=== PATIENT | female | born 1950 | race Caucasian/White ===

== ENCOUNTER 2019-07-11 14:19 | Observation (INO) | payer MEDICARE, OTHER ==
[2019-07-11] MEDS ORDERED: SODIUM CHLORIDE 0.9% 500 ML 500 ML IV STA (15:36)
[2019-07-11] MEDS ORDERED: hydrALAZINE HCL 20 MG/ML 1 ML VIAL IVP STA (15:36)
--- NOTE | 2019-07-11 15:40 | ED ---
General Adult HPI - General Chief complaint: Neuro Symptoms/Deficit Stated complaint: Weakness Time Seen by Provider: 07/11/19 15:00 Source: patient, family, RN notes reviewed Mode of arrival: wheelchair Limitations: no limitations - History of Present Illness Initial comments: Patient is a pleasant 69-year-old female presenting to the emergency Department with generalized weakness. Symptoms started a couple months ago and have worsened this past couple of weeks. Family has concern there may be some left- sided weakness. Patient is having difficulty even using a walker. Patient is not leaving her place of residence. Patient is not eating or drinking much at all. Patient does admit that her mouth feels dry. Patient denies confusion. Patient has stopped taking her Xarelto. Patient states she does not take her pressure medication because the one that she did try did not agree with her. Patient has refused to try other medications for the blood pressure. - Related Data Home Medications Medication Instructions Recorded Confirmed ALPRAZolam [Xanax XR] 2 mg PO DAILY@1700 07/11/19 07/11/19 Levothyroxine Sodium [Synthroid] 25 mcg PO DAILY 07/11/19 07/11/19 Allergies Allergy/AdvReac Type Severity Reaction Status Date / Time Sulfa (Sulfonamide Allergy Rash/Hives Verified 07/11/19 15:59 Antibiotics) aspirin AdvReac Abdominal Verified 07/11/19 15:59 Pain ibuprofen AdvReac Abdominal Verified 07/11/19 15:59 Pain Penicillins AdvReac Confusion Verified 07/11/19 15:59 Review of Systems ROS Statement: Those systems with pertinent positive or pertinent negative responses have been documented in the HPI. ROS Other: All systems not noted in ROS Statement are negative. Constitutional: Denies: fever Eyes: Denies: eye pain ENT: Denies: ear pain Respiratory: Denies: cough Cardiovascular: Reports: palpitations (Chronic). Denies: chest pain Endocrine: Reports: fatigue Gastrointestinal: Denies: abdominal pain, nausea, vomiting Genitourinary: Denies: dysuria Musculoskeletal: Reports: back pain (Chronic) Skin: Denies: rash Neurological: Reports: as per HPI Past Medical History Past Medical History: Atrial Fibrillation, Thyroid Disorder Additional Past Medical History / Comment(s): noncompliant with afib History of Any Multi-Drug Resistant Organisms: None Reported Past Surgical History: Appendectomy, Hysterectomy, Tonsillectomy Past Psychological History: Anxiety Smoking Status: Current every day smoker Past Alcohol Use History: Daily Past Drug Use History: None Reported General Exam Limitations: no limitations General appearance: alert, in no apparent distress Head exam: Present: atraumatic Eye exam: Present: normal appearance, PERRL, EOMI. Absent: nystagmus ENT exam: Present: normal oropharynx Neck exam: Present: normal inspection Respiratory exam: Present: normal lung sounds bilaterally Cardiovascular Exam: Present: regular rate, normal rhythm Expanded Peripheral pulses: 2+: Radial (R), Radial (L), Dorsalis Pedis (R), Dorsalis Pedis (L) GI/Abdominal exam: Present: soft. Absent: tenderness Extremities exam: Present: normal inspection, other (Long uncut Nails with tobacco staining). Absent: pedal edema, calf tenderness Neurological exam: Present: alert, CN II-XII intact. Absent: motor sensory deficit Expanded Neurological exam: Present: protecting the airway Speech: Present: fluid speech Cranial nerves: EOM's Intact: Normal Motor strength exam: RUE: 5, LUE: 5, RLE: 5, LLE: 5 Eye Response: (4) open spontaneously Motor Response: (6) obeys commands Verbal Response: (5) oriented Psychiatric exam: Present: normal affect, normal mood Skin exam: Present: normal color Course Vital Signs 07/11/19 07/11/19 07/11/19 14:44 15:10 15:20 Temperature 97.6 F Pulse Rate 85 78 73 Respiratory 18 12 15 Rate Blood Pressure 152/100 185/111 178/107 O2 Sat by Pulse 97 99 98 Oximetry 07/11/19 07/11/19 15:40 16:51 Temperature Pulse Rate 76 81 Respiratory 20 18 Rate Blood Pressure 188/115 190/70 O2 Sat by Pulse 99 100 Oximetry EKG Findings - EKG Comments: EKG Findings:: Normal sinus rhythm 81. WI 156. QRS 94. QT 416. QTc 43. Normal axis. Inferior Q waves. No acute ST change. Medical Decision Making - Medical Decision Making Patient reevaluated. Patient and family updated. Case discussed in detail with Dr. Tavaers, who will admit covering for Dr. Arreaga. - Lab Data Result diagrams: 07/11/19 15:13 07/11/19 15:13 Lab Results 07/11/19 07/11/1907/11/19 Range/Units 15:13 15:13 15:13 WBC 5.9 (3.8-10.6) k/uL RBC 5.23 (3.80-5.40) m/uL Hgb 15.9 (11.4-16.0) gm/dL Hct 46.2 H (34.0-46.0) % MCV 88.4 (80.0-100.0) fL MCH 30.4 (25.0-35.0) pg MCHC 34.4 (31.0-37.0) g/dL RDW 13.3 (11.5-15.5) % Plt Count 180 (150-450) k/uL Neutrophils % 68 % Lymphocytes % 21 % Monocytes % 7 % Eosinophils % 1 % Basophils % 1 % Neutrophils # 4.0 (1.3-7.7) k/uL Lymphocytes # 1.3 (1.0-4.8) k/uL Monocytes # 0.4 (0-1.0) k/uL Eosinophils # 0.1 (0-0.7) k/uL Basophils # 0.1 (0-0.2) k/uL PT 10.8 (9.0-12.0) sec INR 1.0 (<1.2) APTT 26.7 (22.0-30.0) sec Sodium 134 L (137-145) mmol/L Potassium 3.6 (3.5-5.1) mmol/L Chloride 100 (98-107) mmol/L Carbon Dioxide 18 L (22-30) mmol/L Anion Gap 16 mmol/L BUN 13 (7-17) mg/dL Creatinine 0.69 (0.52-1.04) mg/dL Est GFR (CKD-EPI)AfAm >90 (>60 ml/min/1.73 sqM) Est GFR (CKD-EPI)NonAf 89 (>60 ml/min/1.73 sqM) Glucose 79 (74-99) mg/dL Plasma Lactic Acid Mark (0.7-2.0) mmol/L Calcium 9.2 (8.4-10.2) mg/dL Total Bilirubin 0.8 (0.2-1.3) mg/dL AST 26 (14-36) U/L ALT 14 (9-52) U/L Alkaline Phosphatase 70 (38-126) U/L Troponin I (0.000-0.034) ng/mL Total Protein 8.1 (6.3-8.2) g/dL Albumin 4.3 (3.5-5.0) g/dL Urine Color Urine Appearance (Clear) Urine pH (5.0-8.0) Ur Specific Toney (1.001-1.035) Urine Protein (Negative) Urine Glucose (UA) (Negative) Urine Ketones (Negative) Urine Blood (Negative) Urine Nitrite (Negative) Urine Bilirubin (Negative) Urine Urobilinogen (<2.0) mg/dL Ur Leukocyte Esterase (Negative) Serum Alcohol 14 mg/dL 07/11/19 07/11/19 07/11/19 Range/Units 15:13 15:49 16:24 WBC (3.8-10.6) k/uL RBC (3.80-5.40) m/uL Hgb (11.4-16.0) gm/dL Hct (34.0-46.0) % MCV (80.0-100.0) fL MCH (25.0-35.0) pg MCHC (31.0-37.0) g/dL RDW (11.5-15.5) % Plt Count (150-450) k/uL Neutrophils % % Lymphocytes % % Monocytes % % Eosinophils % % Basophils % % Neutrophils # (1.3-7.7) k/uL Lymphocytes # (1.0-4.8) k/uL Monocytes # (0-1.0) k/uL Eosinophils # (0-0.7) k/uL Basophils # (0-0.2) k/uL PT (9.0-12.0) sec INR (<1.2) APTT (22.0-30.0) sec Sodium (137-145) mmol/L Potassium (3.5-5.1) mmol/L Chloride (98-107) mmol/L Carbon Dioxide (22-30) mmol/L Anion Gap mmol/L BUN (7-17) mg/dL Creatinine (0.52-1.04) mg/dL Est GFR (CKD-EPI)AfAm (>60 ml/min/1.73 sqM) Est GFR (CKD-EPI)NonAf (>60 ml/min/1.73 sqM) Glucose (74-99) mg/dL Plasma Lactic Acid Mark 2.0 (0.7-2.0) mmol/L Calcium (8.4-10.2) mg/dL Total Bilirubin (0.2-1.3) mg/dL AST (14-36) U/L ALT (9-52) U/L Alkaline Phosphatase (38-126) U/L Troponin I <0.012 (0.000-0.034) ng/mL Total Protein (6.3-8.2) g/dL Albumin (3.5-5.0) g/dL Urine Color Light Yellow Urine Appearance Clear (Clear) Urine pH 6.0 (5.0-8.0) Ur Specific Toney 1.003 (1.001-1.035) Urine Protein Negative (Negative) Urine Glucose (UA) Negative (Negative) Urine Ketones Negative (Negative) Urine Blood Negative (Negative) Urine Nitrite Negative (Negative) Urine Bilirubin Negative (Negative) Urine Urobilinogen <2.0 (<2.0) mg/dL Ur Leukocyte Esterase Negative (Negative) Serum Alcohol mg/dL - Radiology Data Radiology results: report reviewed (Computed tomography scan of the brain shows no acute process. Probable arachnoid cyst.), image reviewed (Chest x-ray does not reveal acute process. Cardiomegaly.) Disposition Clinical Impression: Weakness, Hypertensive urgency Disposition: ADMITTED IP TO THIS HOSP Is patient prescribed a controlled substance at d/c from ED?: No Referrals: Jackie Arreaga MD [Primary Care Provider] - 1-2 days Decision Time: 17:27
[2019-07-11 15:54] LABS: Basophils # (A) 0.1 k/uL (0-0.2); Basophils % (A) 1 %; Eosinophils # (A) 0.1 k/uL (0-0.7); Eosinophils % (A) 1 %; HCT 46.2 % (34.0-46.0); HGB 15.9 gm/dL (11.4-16.0); Lymphocytes # (A) 1.3 k/uL (1.0-4.8); Lymphocytes % (A) 21 %; MCH 30.4 pg (25.0-35.0); MCHC 34.4 g/dL (31.0-37.0); MCV 88.4 fL (80.0-100.0); Mean Platelet Volume 7.1; Monocytes # (A) 0.4 k/uL (0-1.0); Monocytes % (A) 7 %; Neutrophils % (A) 68 %; Platelet Count 180 k/uL (150-450); RBC 5.23 m/uL (3.80-5.40); RDW 13.3 % (11.5-15.5); WBC 5.9 k/uL (3.8-10.6)
[2019-07-11 16:07] LABS: ALT 14 U/L (9-52); AST 26 U/L (14-36); African American GFR (CKD) >90 (>60 ml/min/1.73 sqM); Albumin 4.3 g/dL (3.5-5.0); Alcohol 14 mg/dL; Alkaline Phosphatase 70 U/L (38-126); Anion Gap 16 mmol/L; Blood Urea Nitrogen 13 mg/dL (7-17); Calcium 9.2 mg/dL (8.4-10.2); Carbon Dioxide 18 mmol/L (22-30); Chloride 100 mmol/L (98-107); Glucose 79 mg/dL (74-99); Potassium 3.6 mmol/L (3.5-5.1); Sodium 134 mmol/L (137-145); Total Bilirubin 0.8 mg/dL (0.2-1.3); Total Protein 8.1 g/dL (6.3-8.2)
--- NOTE | 2019-07-11 16:13 | XR ---
EXAMINATION TYPE: XR chest 2V DATE OF EXAM: 07/11/2019 COMPARISON: NONE HISTORY: Weakness and atrial fibrillation TECHNIQUE: Frontal and lateral views of the chest are obtained. FINDINGS: There is no focal air space opacity, pleural effusion, or pneumothorax seen. The cardiac silhouette size is enlarged. The osseous structures are intact. Mild multilevel degenerative change s of the spine. There is diffuse osseous demineralization seen. IMPRESSION: Enlarged cardiac mediastinal silhouette however no priors are available to determine sta bility of size. No acute pulmonary process.
--- NOTE | 2019-07-11 16:18 | CT ---
EXAMINATION TYPE: CT brain wo con DATE OF EXAM: 07/11/2019 COMPARISON: None HISTORY: altered mental status CT DLP: 1141.4 mGycm Automated exposure control for dose reduction was used. FINDINGS: There is no acute cranial hemorrhage. No midline shift. No hydrocephalus. Scattered areas of low atte nuation in periventricular and subcortical white matter may be on the basis of chronic microvascular ischemic changes. Focal area is seen overlying the right frontoparietal lobe. No hydrocephalus. CSF a ttenuation area is seen anterior to the left temporal lobe within the middle cranial fossa measuring 3.7 x 3.0 cm in AP by transverse dimension. Findings may be on the basis of arachnoid cyst. Visualize d paranasal sinuses and mastoid air cells are clear. Skull base is intact. IMPRESSION: NO ACUTE INTRACRANIAL HEMORRHAGE OR MIDLINE SHIFT. SCATTERED LOW-ATTENUATION AREAS IN THE PERIVENTRICULAR AND SUBCORTICAL WHITE MATTER LIKELY ON THE BAS IS OF CHRONIC MICROVASCULAR ISCHEMIC CHANGES. LEFT MIDDLE CRANIAL FOSSA CSF INTENSITY COLLECTION FAVORED TO REPRESENT ARACHNOID CYST VERSUS ENLARGE D EXTRA-AXIAL SPACE. MRI OF THE BRAIN WITHOUT CONTRAST MAY BE PERFORMED FOR CONFIRMATION.
[2019-07-11 16:27] LABS: Partial Thromboplastin Time 26.7 sec (22.0-30.0); Prothrombin Time 10.8 sec (9.0-12.0)
[2019-07-11 16:32] LABS: Appearance,Urine Clear (Clear); Bilirubin,Urine Negative (Negative); Blood,Urine Negative (Negative); Color,Urine Light Yellow; Glucose,Urine (UA) Negative (Negative); Ketones,Urine Negative (Negative); Leukocyte Esterase,Urine Negative (Negative); Nitrite,Urine Negative (Negative); Protein,Urine Negative (Negative); Specific Gravity,Urine 1.003 (1.001-1.035); Urobilinogen,Urine <2.0 mg/dL (<2.0)
[2019-07-11] MEDS ORDERED: ASPIRIN 325 MG TAB PO STA (17:29)
[2019-07-11] MEDS ORDERED: ATENOLOL 12.5 MG TAB PO STA (17:35)
[2019-07-11] MEDS: SODIUM CHLORIDE 0.9% 1,000 ML IV SCH (18:03)
[2019-07-11] MEDS ORDERED: ALPRAZolam 1 MG TAB PO STA (20:22)
[2019-07-11 22:15] VITALS: BMI 28.0
[2019-07-12 06:42] VITALS: RESP 18
--- NOTE | 2019-07-12 07:25 | US ---
EXAMINATION TYPE: US carotid duplex BILAT DATE OF EXAM: 07/11/2019 COMPARISON: NONE CLINICAL HISTORY: Stenosis. Stenosis. Smoker. EXAM MEASUREMENTS: RIGHT: Peak Systolic Velocity (PSV) cm/sec ----- Right CCA: 59.2 ----- Right ICA: 67.7 ----- Right ECA: 79.9 ICA/CCA ratio: 1.1 RIGHT: End Diastole cm/sec ----- Right CCA: 17.5 ----- Right ICA: 23.7 ----- Right ECA: 10.1 LEFT: Peak Systolic Velocity (PSV) cm/sec ----- Left CCA: 54.6 ----- Left ICA: 77.6 ----- Left ECA: 74.7 ICA/CCA ratio: 1.4 LEFT: End Diastole cm/sec ----- Left CCA: 16.2 ----- Left ICA: 21.5 ----- Left ECA: 7.5 VERTEBRALS (direction of flow): Right Vertebral: Antegrade Left Vertebral: Antegrade Rhythm: Arrhythmia Bilateral wall thickening seen. Plaque seen bilateral carotid bifurcations, greater on left side. Lef t ICA appears tortuous. No elevated velocities obtained. *Hypoechoic area with vascularity seen near Left CCA measurin.6 x 0.5 x 0.4 cm. This appears to represent a small nonenlarged lymph node. IMPRESSION: 1. Mild degree of grayscale atheromatous plaquing with no sonographically evident hemodynamically si gnificant stenosis within either visualized carotid arterial system. 2. Incidentally noted cardiac arrhythmia. Correlate with EKG. 3. Incidentally noted probable nonenlarged lymph node adjacent to the left common carotid artery. Criteria for Assigning % of Stenosis / Diameter reduction (Estimation based on the indirect measurements of the internal carotid artery velocities (ICA PSV). 1. Normal (no stenosis)=ICA PSV < 125 cm/s: ratio < 2.0: ICA EDV<40 cm/s. 2. Less than 50% stenosis=ICA PSV < 125 cm/s: ratio < 2.0: ICA EDV<40 cm/s. 3. 50 to 69% stenosis=ICA PSV of 125 to 230 cm/s: ration 2.0 ? 4.0: ICA EDV 40-100 cm/s. 4. Greater than 70% stenosis to near occlusion= ICA PSV > 230 cm/s: ratio > 4.0: ICA EDV > 100 cm/s. 5. Near occlusion= ICA PSV velocities may be low or undetectable: variable ratio and ICA EDV. 6. Total occlusion=unable to detect flow.
[2019-07-12 07:30] LABS: Cholesterol 166 mg/dL (<200); HDL Cholesterol 27 mg/dL (40-60); LDL Cholesterol,Calculated 109 mg/dL (0-99); Triglycerides 148 mg/dL (<150)
[2019-07-12] MEDS ORDERED: ASPIRIN 325 MG TAB PO SCH (09:00)
[2019-07-12] MEDS ORDERED: ATENOLOL 25 MG TAB PO SCH (09:00)
[2019-07-12] MEDS: SODIUM CHLORIDE 0.9% 1,000 ML IV SCH ×2 (09:31→12:05)
[2019-07-12 11:47] VITALS: PULSE 67; TEMP 97.9
--- NOTE | 2019-07-12 11:49 | ECHOF ---
Referral Reason:Thrombus MEASUREMENTS -------- HEIGHT: 162.6 cm WEIGHT: 72.1 kg BP: IVSd: 1.2 cm (0.6 - 1.1) LVIDd: 3.9 cm (3.9 - 5.3) LVPWd: 1.6 cm (0.6 - 1.1) IVSs: 1.8 cm LVIDs: 2.7 cm LVPWs: 1.8 cm LA Diam: 3.3 cm (2.7 - 3.8) RVIDd: 2.5 cm (< 3.3) LAESV Index (A-L): 29.22 ml/m Ao Diam: 3.1 cm (2.0 - 3.7) LA Diam: 3.1 cm (2.7 - 3.8) AV Cusp: 1.9 cm (1.5 - 2.6) EPSS: 0.7 cm MV E John: 0.78 m/s MV DecT: 189 ms MV A John: 1.16 m/s MV E/A Ratio: 0.67 AR PHT: 582 ms RAP: 5.00 mmHg RVSP: 22.39 mmHg MV EF SLOPE: 69.44 mm/s (70 - 150) MV EXCURSION: 13.19 mm (> 18.000) FINDINGS -------- Sinus rhythm. This was a technically good study. The left ventricular size is normal. There is borderline concentric left ventricular hypertrophy. Overall left ventricular systolic function is normal with, an EF between 55 - 60 %. The diastolic filling pattern is normal for the age of the patient 17.99. The right ventricle is normal in size. The left atrial size is normal. Normal LA size by volume 22+/-6 ml/m2. The right atrial size is normal. There is mild aortic regurgitation. Mild mitral annular calcification present. Mild mitral regurgitation is present. Mild tricuspid regurgitation present. There is no evidence of pulmonary hypertension. The right v entricular systolic pressure, as measured by Doppler, is 22.39mmHg. Trace/mild (physiologic) pulmonic regurgitation. The aortic root size is normal. There is no pericardial effusion. CONCLUSIONS -------- 1. Sinus rhythm. 2. This was a technically good study. 3. The left ventricular size is normal. 4. There is borderline concentric left ventricular hypertrophy. 5. Overall left ventricular systolic function is normal with, an EF between 55 - 60 %. 6. The diastolic filling pattern is normal for the age of the patient 17.99 7. The right ventricle is normal in size. 8. The left atrial size is normal. 9. Normal LA size by volume 22+/-6 ml/m2. 10. The right atrial size is normal. 11. There is mild aortic regurgitation. 12. Mild mitral annular calcification present. 13. Mild mitral regurgitation is present. 14. Mild tricuspid regurgitation present. 15. There is no evidence of pulmonary hypertension. 16. The right ventricular systolic pressure, as measured by Doppler, is 22.39mmHg. 17. Trace/mild (physiologic) pulmonic regurgitation. 18. The aortic root size is normal. 19. There is no pericardial effusion. SLAB GRINDER: Marcela Putnam RDCS
--- NOTE | 2019-07-12 12:02 | P.HPIM ---
History of Present Illness 69.-year-old presents female came in with compensative symptoms of generalized weakness patient has multiple nonspecific symptoms. Patient has a difficulty in using walker physical Lovenox patient is of a valid the patient here and they're not recommending any subacute rehabitation and patient is not willing to go to a subacute rehab either they're recommending home physical therapy along with a walker although patient doesn't want use walker is comparing of tiredness. All the workup is negative for sepsis will obtain a TSH level. Patient is on high- dose of Xanax it appears like patient has anxiety and has been on this med ication for long time which can contribute to her symptoms but patient is not willing to cut down the dose of this medication and not willing to take SSRIs. Patient maybe be dehydrated with mild hyponatremia receiving IV fluids which the help her symptoms of generalized weakness of a bit. Patient doesn't have any focal weakness all the workup for TIA or stroke is negative do not believe patient has a TIA or stroke as patient's symptoms of generalized weakness. Although carotid Doppler brain CT and echocardiogram were ordered from ER all of which did not show any significant abnormality. In the past patient was believed to have palpitations or cardiac arrhythmia EKG showed sinus rhythm here telemetry did not show any significant rhythm abnormalities. Patient will be referred to cardiology may benefit from Holter monitor as an outpatient. Nothing much else can be offered for the patient is an patient. Patient does have some anion gap metabolic acidosis, obtaining lactic acid level to make sure patient doesn't have any lactic acidosis this may be related to dehydration as well. will be discharged if all this workup is negative there is no evidence of infection at this time. Review of Systems REVIEW OF SYSTEMS: CONSTITUTIONAL: No fever, no malaise, HEENT: No recent visual problems or hearing problems. Denied any sore throat. CARDIOVASCULAR: No chest pain, orthopnea, PND, no palpitations, no syncope. PULMONARY: No shortness of breath, no cough, no hemoptysis. GASTROINTESTINAL: No diarrhea, no nausea, no vomiting, no abdominal pain. NEUROLOGICAL: No headaches, no weakness, no numbness. HEMATOLOGICAL: Denies any bleeding or petechiae. GENITOURINARY: Denies any burning micturition, frequency, or urgency. MUSCULOSKELETAL/RHEUMATOLOGICAL: Denies any joint pain, swelling, or any muscle pain. ENDOCRINE: Denies any polyuria or polydipsia. The rest of the 14-point review of systems is negative. Past Medical History Past Medical History: Atrial Fibrillation, Thyroid Disorder Additional Past Medical History / Comment(s): noncompliant with afib, diverticulitis History of Any Multi-Drug Resistant Organisms: None Reported Past Surgical History: Appendectomy, Hysterectomy, Tonsillectomy Past Psychological History: Anxiety Smoking Status: Current every day smoker Past Alcohol Use History: Daily Past Drug Use History: None Reported Medications and Allergies Home Medications Medication Instructions Recorded Confirmed Type ALPRAZolam [Xanax XR] 2 mg PO DAILY@1700 07/11/19 07/11/19 History Levothyroxine Sodium [Synthroid] 25 mcg PO DAILY 07/11/19 07/11/19 History Atenolol [Tenormin] 25 mg PO DAILY #30 tab 07/12/19 Rx Allergies Allergy/AdvReac Type Severity Reaction Status Date / Time Sulfa (Sulfonamide Allergy Rash/Hives Verified 07/11/19 15:59 Antibiotics) aspirin AdvReac Abdominal Verified 07/11/19 15:59 Pain ibuprofen AdvReac Abdominal Verified 07/11/19 15:59 Pain Penicillins AdvReac Confusion Verified 07/11/19 15:59 Physical Exam Vitals: Vital Signs Temp Pulse Pulse Resp BP BP Pulse Ox 07/12/19 08:00 97.9 F 67 151/93 96 07/12/19 04:30 97.4 F L 71 18 150/77 97 07/12/19 00:00 98.1 F 71 16 146/70 98 07/11/19 20:45 98.2 F 68 16 173/86 100 07/11/19 18:04 84 18 168/83 100 07/11/19 17:50 80 18 177/108 99 07/11/19 16:51 81 18 190/70 100 07/11/19 15:40 76 20 188/115 99 07/11/19 15:20 73 15 178/107 98 07/11/19 15:10 78 12 185/111 99 07/11/19 14:44 97.6 F 85 18 152/100 97 Intake and Output 07/11/19 07/12/19 07/12/19 22:59 06:59 14:59 Intake Total 240 Balance 240 Intake: Oral 240 Other: Voiding Method Toilet # Voids 1 Weight 72.3 kg PHYSICAL EXAMINATION: GENERAL: The patient is alert and oriented x3, not in any acute distress. Well developed, well nourished. HEENT: Pupils are round and equally reacting to light. EOMI. No scleral icterus. No conjunctival pallor. Normocephalic, atraumatic. No pharyngeal erythema. No thyromegaly. CARDIOVASCULAR: S1 and S2 present. No murmurs, rubs, or gallops. PULMONARY: Chest is clear to auscultation, no wheezing or crackles. ABDOMEN: Soft, nontender, nondistended, normoactive bowel sounds. No palpable organomegaly. MUSCULOSKELETAL: No joint swelling or deformity. EXTREMITIES: No cyanosis, clubbing, or pedal edema. NEUROLOGICAL: Gross neurological examination did not reveal any focal deficits. SKIN: No rashes. Results CBC & Chem 7: 07/11/19 15:13 07/11/19 15:13 Labs: Abnormal Lab Results - Last 24 Hours (Table) 07/11/19 07/11/19 07/11/19 Range/Units 15:13 15:13 15:13 Hct 46.2 H (34.0-46.0) % Sodium 134 L (137-145) mmol/L Carbon Dioxide 18 L (22-30) mmol/L LDL Cholesterol, Calc 109 H (0-99) mg/dL HDL Cholesterol 27 L (40-60) mg/dL Thrombosis Risk Factor Assmnt - Choose All That Apply Each Factor Represents 1 point: Obesity (BMI >25), Swollen legs (current) Each Risk Factor Represents 2 Points: Age 61-74 years Thrombosis Risk Factor Assessment Total Risk Factor Score: 4 Thrombosis Risk Factor Assessment Level: Moderate Risk Assessment and Plan Plan: -Generalized weakness: May be related to mild dehydration and the anion gap metabolic acidosis my lactic acidosis may be related to dehydration as well which improved now patient will be discharged today. Patient was evaluated by physical therapy and occupational therapy the recommending a walker and home care -Ruled out CVA or TIA. -Hypothyroidism TSH within normal limits patient will continue her home dose of Lovenox and -Question will history of cardiac kidney further management as mentioned above -Anxiety disorder -Nicotine abuse: Counseling was provided Patient will be discharged today
--- NOTE | 2019-07-12 12:02 | P.DS ---
Providers Date of admission: 07/11/19 17:29 Attending physician: Nag Tavares Primary care physician: Jackie Arreaga [facility] Hospital Course: Please up with him HPI Plan - Discharge Summary Discharge Rx Participant: No New Discharge Prescriptions: New Atenolol [Tenormin] 25 mg PO DAILY #30 tab Continue Levothyroxine Sodium [Synthroid] 25 mcg PO DAILY ALPRAZolam [Xanax XR] 2 mg PO DAILY@1700 Discharge Medication List ALPRAZolam [Xanax XR] 2 mg PO DAILY@1700 07/11/19 [History] Levothyroxine Sodium [Synthroid] 25 mcg PO DAILY 07/11/19 [History] Atenolol [Tenormin] 25 mg PO DAILY #30 tab 07/12/19 [Rx] Follow up Appointment(s)/Referral(s): Roland Ramirez MD [STAFF PHYSICIAN] - 1 Week Jackie Arreaga MD [Primary Care Provider] - 3 Days Discharge Disposition: HOME WITH HOME HEALTH SERVICES
[2019-07-12 13:44] VITALS: BP 174/93
[2019-07-12] MEDS ORDERED: ALPRAZolam 1 MG TAB PO SCH (18:00)
== END 2019-07-12 13:35 | disposition home health service (06) ==
LOC: EC 14:19 → 3SCARD 17:29
PROVIDERS: ADMIT Hospitalist; ATTEND Hospitalist
DX: R53.1 Weakness (principal); I16.0 Hypertensive urgency; E87.1 Hypo-osmolality and hyponatremia; E87.2 Acidosis; Z68.27 Body mass index [BMI] 27.0-27.9, adult; I48.91 Unspecified atrial fibrillation; I65.23 Occlusion and stenosis of bilateral carotid arteries; Z87.19 Personal history of other diseases of the digestive system; E66.9 Obesity, unspecified; E03.9 Hypothyroidism, unspecified; F41.9 Anxiety disorder, unspecified; F17.200 Nicotine dependence, unspecified, uncomplicated; Z71.6 Tobacco abuse counseling; Z90.49 Acquired absence of other specified parts of digestive tract; Z90.710 Acquired absence of both cervix and uterus; Z79.890 Hormone replacement therapy; Z79.899 Other long term (current) drug therapy; Z88.6 Allergy status to analgesic agent; Z88.0 Allergy status to penicillin; Z88.2 Allergy status to sulfonamides; Z91.19 Patient's noncompliance with other medical treatment and regimen
CPT/HCPCS: 96361 ×2; 96374; 99285; 36415; 93005; 93306; 97162; 97535; 97165; 80061; 80053; 84443; 83605 ×2; 84484; 85025; 85610; 85730; 81003; 71046; 93880; 70450; G0378 ×2; G0480; J0360; 80320

== ENCOUNTER 2019-08-15 12:15 | Inpatient (IN) | payer MEDICARE, OTHER ==
--- NOTE | 2019-08-15 13:03 | ED ---
General Adult HPI - General Chief complaint: Extremity Problem,Nontraumatic Stated complaint: Failure to Thrive Time Seen by Provider: 08/15/19 12:33 Source: patient, EMS Mode of arrival: EMS Limitations: no limitations - History of Present Illness Initial comments: Dictation was produced using [employer] dictation software. please excuse any grammatical, word or spelling errors. Chief Complaint: 69-year-old who presents with back pain and knee pain History of Present Illness: 69-year-old female she is brought in by EMS for back pain and knee pain. Patient states she is more concerned about her knee pain she states that both of her knees hurt however it's worse on the right. States it began acutely over the last 2-3 days. Patient has a history of gout. Denies any history of arthritis to the knees. She called EMS because she had difficulty walking. No other complaints at this time. The ROS documented in this emergency department record has been reviewed and confirmed by me. Those systems with pertinent positive or negative responses have been documented in the HPI. All other systems are other negative and/or noncontributory. PHYSICAL EXAM: General Impression: Alert and oriented x3, not in acute distress HEENT: Normocephalic atraumatic, extra-ocular movements intact, pupils equal and reactive to light bilaterally, mucous membranes moist. Cardiovascular: Heart regular rate and rhythm, S1&S2 audible, no murmurs, rubs or gallops Chest: Lungs clear to auscultation bilaterally, no rhonchi, no wheeze, no rales Abdomen: Bowel sounds present, abdomen soft, non-tender, non-distended, no organomegaly Musculoskeletal: Pulses present and equal in all extremities, no peripheral edema, hypertrophic bilateral knees, range of motion is intact. No pain with passive range of motion, no effusion no redness or warmth Motor: no focal deficits noted Neurological: CN II-XII grossly intact, no focal motor or sensory deficits noted Skin: Intact with no visualized rashes Psych: Normal affect and mood ED course: 69 yo Female presents with bilateral knee pain worse in the right. As upon arrival are within acceptable limits.Patient is well-appearing. She does complain of significant pain in her knee. X-rays of the bilateral hips and knees were obtained showing no acute processes. Patient states that she does not feel comfortable at home given that she lives by herself. She reports that she is unable to care for herself due to her weakness. Patient is resting comfortably in the stretcher. Patient be admitted for grave disability. Discussed patient case Dr. Johnson who is willing to accept patients care. orthopedic surgery on consult for knee pain. - Related Data Home Medications Medication Instructions Recorded Confirmed ALPRAZolam [Xanax XR] 2 mg PO DAILY@1700 07/11/19 08/15/19 Levothyroxine Sodium [Synthroid] 25 mcg PO DAILY 07/11/19 08/15/19 Cyclobenzaprine [Flexeril] 10 mg PO HS 08/15/19 08/15/19 Ergocalciferol [Vitamin D2] 50,000 unit PO QMONTH 08/15/19 08/15/19 Allergies Allergy/AdvReac Type Severity Reaction Status Date / Time Sulfa (Sulfonamide Allergy Rash/Hives Verified 08/15/19 12:29 Antibiotics) aspirin AdvReac Abdominal Verified 08/15/19 12:29 Pain ibuprofen AdvReac Abdominal Verified 08/15/19 12:29 Pain NSAIDS (Non-Steroidal AdvReac Abdominal Verified 08/15/19 12:32 Anti-Inflamma Pain Penicillins AdvReac Confusion Verified 08/15/19 12:29 METAL (UNKNOWN TYPE) Allergy Rash/Hives Uncoded 08/15/19 12:32 Review of Systems ROS Statement: Those systems with pertinent positive or pertinent negative responses have been documented in the HPI. ROS Other: All systems not noted in ROS Statement are negative. Past Medical History Past Medical History: Atrial Fibrillation, Thyroid Disorder Additional Past Medical History / Comment(s): noncompliant with afib, diverticulitis History of Any Multi-Drug Resistant Organisms: None Reported Past Surgical History: Appendectomy, Hysterectomy, Tonsillectomy Past Psychological History: Anxiety Smoking Status: Current every day smoker Past Alcohol Use History: Daily Past Drug Use History: None Reported General Exam Limitations: no limitations Course Vital Signs 08/15/19 12:24 Temperature 97.5 F L Pulse Rate 84 Respiratory 18 Rate Blood Pressure 140/77 O2 Sat by Pulse 94 L Oximetry Disposition Clinical Impression: Weakness Disposition: ADMITTED IP TO THIS HOSP Condition: Fair Referrals: Jackie Arreaga MD [Primary Care Provider] - 1-2 days Decision Time: 15:05
--- NOTE | 2019-08-15 14:14 | XR ---
EXAMINATION TYPE: XR knee complete bilateral DATE OF EXAM: 08/15/2019 CLINICAL HISTORY: Left greater than right bilateral pain TECHNIQUE: Three views of the bilateral knees are obtained. COMPARISON: None. FINDINGS: There is no acute fracture/dislocation evident in either knee. There is [id number] n arrowing medial lateral tibiofemoral compartments in both knees slightly more prominent lateral tibio femoral compartment of the left kidney versus right knee. There is moderate narrowing patellofemoral compartment more prominent right knee versus left knee. The overlying soft tissue appears unremarkab le bilaterally. IMPRESSION: As above.
--- NOTE | 2019-08-15 14:29 | XR ---
EXAMINATION TYPE: XR Hip Bilateral and AP pelvis DATE OF EXAM: 08/15/2019 COMPARISON: NONE HISTORY: Left greater than right pain TECHNIQUE: A single AP view of the pelvis is obtained. Two views of the bilateral hips are obtained. FINDINGS: There is no acute fracture/dislocation evident in the pelvis. The sacroiliac joints appea r symmetric and unremarkable. Bilateral pelvic vascular calcification is seen. Two views of bilateral hips show no acute fracture or dislocation. No focal lytic or sclerotic lesio n seen in the proximal femurs bilaterally. There is moderate axial joint space loss with moderate laury tabular spurring bilaterally . Findings are fairly symmetric in appearance and both hips. Overlying s oft tissue is unremarkable bilaterally. IMPRESSION: As above.
[2019-08-15] MEDS ORDERED: ACETAMINOPHEN TAB 325 MG TAB PO PRN (15:02)
[2019-08-15] MEDS ORDERED: NALOXONE 0.4 MG/ML 1 ML VIAL IV PRN (15:02)
[2019-08-15] MEDS ORDERED: SODIUM CHLORIDE 0.9% 1,000 ML IV STA (15:02)
[2019-08-15 15:53] LABS: Albumin 4.2 g/dL (3.5-5.0); Calcium 9.6 mg/dL (8.4-10.2); Total Bilirubin 1.5 mg/dL (0.2-1.3); Total Protein 8.3 g/dL (6.3-8.2)
[2019-08-15 15:55] LABS: Potassium 4.6 mmol/L (3.5-5.1)
[2019-08-15 16:39] LABS: Appearance,Urine Cloudy (Clear); Bacteria,Urine Occasional /hpf; Bilirubin,Urine Negative (Negative); Blood,Urine Small (Negative); Color,Urine Yellow; Glucose,Urine (UA) Negative (Negative); Ketones,Urine 2+ (Negative); Leukocyte Esterase,Urine Moderate (Negative); Mucus,Urine Few /hpf; Nitrite,Urine Negative (Negative); Protein,Urine 1+ (Negative); RBC,Urine 29 /hpf (0-5); Specific Gravity,Urine 1.018 (1.001-1.035); Squamous Epithelial Cell,Urine 18 /hpf (0-4)
[2019-08-15] MEDS: MAGNESIUM SULFATE-D5W PMX 1 GM in DEXTROSE/WATER 1 100ML.BAG IVPB SCH ×2 (17:02→23:27)
[2019-08-15] MEDS ORDERED: ERGOCALCIFEROL 50,000 UNIT CAP PO SCH (17:30)
[2019-08-15] MEDS: ALPRAZolam 0.5 MG TAB PO SCH ×2 (19:53→23:11)
[2019-08-15] MEDS ORDERED: hydrALAZINE HCL 25 MG TAB PO STA (20:24)
[2019-08-15] MEDS ORDERED: CYCLOBENZAPRINE 10 MG TAB PO SCH (21:00)
[2019-08-15] MEDS: SODIUM CHLORIDE 0.9% 1,000 ML IV SCH (22:35)
[2019-08-15] MEDS ORDERED: MAGNESIUM SULFATE-D5W PMX 1 GM in DEXTROSE/WATER 1 100ML.BAG IVPB SCH (23:30)
--- NOTE | 2019-08-15 23:57 | P.HPIM ---
History of Present Illness H&P Date: 08/15/19 Chief Complaint: Bilateral knee pain Patient is a 69-year-old female with a known history of hypothyroidism, osteoarthritis and questionable history of atrial fibrillation currently not on any anticoagulation, generalized anxiety, nicotine addiction came to ER with complaints of bilateral knee. Back pain. Patient states she is more concerned about her knee pain she states that both of her knees hurt however it's worse on the right. States it began acutely over the last 2-3 days. Patient does not have a history of gout. Denies any history of arthritis to the knees. She called EMS because she had difficulty walking. No other complaints at this time. No complaints of cough or sputum production. No fever no chills. No chest pain or shortness of breath. No headache or dizziness or lightheadedness. No recent travel or sick contacts. Patient was admitted to hospital in June 2019 with complaints of generalized weakness. Patient had workup done including CT head and carotid duplex and 2-D echocardiogram showed no significant abnormalities noted. TSH was within normal limits. PT OT recommends home with walker at the time. X-ray of the bilateral knees showed no fracture or dislocation. Mild to moderate narrowing of the medial lateral Tibiofemoral competent in both knees slightly more on the right side. Sodium 136, AST 37, BUN 18 Review of Systems Constitutional: Patient denies any fever or chills . No generalized weakness or weight loss. Abdomen: Patient denied nausea vomiting and diarrhea and abdominal pain. Cardiovascular: Patient denies any chest pain or short of breath no palpitations. Respiratory: patient denied any cough is from production. No shortness of breath Neurologic: Patient denied any numbness or tingling headache. Musculoskeletal: Patient denies any complaints of joint swelling or deformity. Bilateral knee pain. Skin: Negative Psychiatric: Negative Endocrine: No heat or cold intolerance. No recent weight gain. Genitourinary: No dysuria or hematuria. All other 14 point ROS negative except the above Past Medical History Past Medical History: Atrial Fibrillation, Thyroid Disorder Additional Past Medical History / Comment(s): noncompliant with afib, diverticulitis History of Any Multi-Drug Resistant Organisms: None Reported Past Surgical History: Appendectomy, Hysterectomy, Tonsillectomy Past Psychological History: Anxiety Smoking Status: Current every day smoker Past Alcohol Use History: Daily Past Drug Use History: None Reported Medications and Allergies Home Medications Medication Instructions Recorded Confirmed Type ALPRAZolam [Xanax XR] 2 mg PO DAILY@1700 07/11/19 08/15/19 History Levothyroxine Sodium [Synthroid] 25 mcg PO DAILY 07/11/19 08/15/19 History Cyclobenzaprine [Flexeril] 10 mg PO HS 08/15/19 08/15/19 History Ergocalciferol [Vitamin D2] 50,000 unit PO QMONTH 08/15/19 08/15/19 History Allergies Allergy/AdvReac Type Severity Reaction Status Date / Time Sulfa (Sulfonamide Allergy Rash/Hives Verified 08/15/19 12:29 Antibiotics) aspirin AdvReac Abdominal Verified 08/15/19 12:29 Pain ibuprofen AdvReac Abdominal Verified 08/15/19 12:29 Pain NSAIDS (Non-Steroidal AdvReac Abdominal Verified 08/15/19 12:32 Anti-Inflamma Pain Penicillins AdvReac Confusion Verified 08/15/19 12:29 METAL (UNKNOWN TYPE) Allergy Rash/Hives Uncoded 08/15/19 12:32 Physical Exam Vitals: Vital Signs Temp Pulse Pulse Resp BP BP Pulse Ox 08/15/19 19:05 98.4 F 68 18 189/102 100 08/15/19 18:46 78 18 184/100 99 08/15/19 16:30 82 20 187/104 100 08/15/19 16:00 78 20 180/103 100 08/15/19 13:30 72 16 166/113 99 08/15/19 13:00 78 18 179/109 99 08/15/19 12:30 80 16 140/97 99 08/15/19 12:24 97.5 F L 84 18 140/77 94 L 08/15/19 12:21 97 Intake and Output 08/15/19 08/15/19 08/15/19 06:59 14:59 22:59 Output Total 100 Balance -100 Output: Urine 100 Other: # Voids 1 Weight 77.111 kg PHYSICAL EXAMINATION: Patient is lying in the bed comfortably, no acute distress, awake alert and oriented. Anxious.. HEENT: Normocephalic. Neck is supple. Pupils reactive. Nostrils clear. Oral cavity is moist. Ears reveal no drainage. Neck reveals no JVD, carotid bruits, or thyromegaly. CHEST EXAMINATION: Trachea is central. Symmetrical expansion. Lung lisa clear to auscultation and percussion. CARDIAC: Normal S1, S2 with no gallops. No murmurs ABDOMEN: Soft. Bowel sounds normal. No organomegaly. No abdominal bruits. Extremities: reveal no edema. No clubbing or cyanosis Neurologically awake, alert, oriented x3 with well-coordinated movements. No focal deficits noted Skin: No rash or skin lesions. Psychiatric: Coperative. Nonsuicidal Musculoskeletal: No joint swelling or deformity. Normal range of motion. No evidence of effusion bilateral knees. Results CBC & Chem 7: 08/15/19 15:25 Labs: Abnormal Lab Results - Last 24 Hours (Table) 08/15/19 08/15/19 Range/Units 15:25 16:15 Sodium 136 L (137-145) mmol/L Carbon Dioxide 19 L (22-30) mmol/L BUN 18 H (7-17) mg/dL Total Bilirubin 1.5 H (0.2-1.3) mg/dL AST 37 H (14-36) U/L ALT 6 L (9-52) U/L Total Protein 8.3 H (6.3-8.2) g/dL Urine Appearance Cloudy H (Clear) Urine Protein 1+ H (Negative) Urine Ketones 2+ H (Negative) Urine Blood Small H (Negative) Ur Leukocyte Esterase Moderate H (Negative) Urine RBC 29 H (0-5) /hpf Ur Squamous Epith Cells 18 H (0-4) /hpf Urine Bacteria Occasional H (None) /hpf Urine Mucus Few H (None) /hpf Thrombosis Risk Factor Assmnt - DVT/VTE Prophylaxis DVT/VTE Prophylaxis: Pharmacologic Prophylaxis ordered Assessment and Plan Assessment: Bilateral knee pain right greater than left likely due to osteoarthritis. Generalized weakness secondary to deconditioning and volume depletion Hypovolemic hyponatremia mild sodium level 136 Hypomagnesemia Uncontrolled hypertension Generalized anxiety and Hypothyroidism Questionable history of atrial fibrillation. Currently maintaining sinus rhythm. Nicotine addiction History of alcohol abuse DVT prophylaxis with heparin subcu Plan: Patient be continued on pain management with Tylenol 3. Flexeril will be held at this time. IV hydration gently and follow-up repeat CBC and BMP tomorrow. EKG showed normal sinus rhythm. Recent TSH level is within normal limits. Recent stroke workup including CT head, carotid duplex and 2-D echocardiogram showed no acute process or abnormality noted. Orthopedic surgery was consulted due to bilateral knee pain. Continue with Xanax as per home dose. Further recommendations based on the clinical course. Patient was counseled extensively for smoking cessation. Prognosis is guarded. PT, OT will be consulted. Time with Patient: Greater than 30
[2019-08-16] MEDS: Acetaminophen-Codeine 300-30mg TAB PO PRN ×2 (00:49→21:42)
[2019-08-16] MEDS: NIFEdipine XL 30 MG TAB.ER.24 PO SCH ×2 (00:50→09:21)
[2019-08-16] MEDS: HEPARIN SODIUM,PORCINE 5,000 UNIT/ML 1 ML VIAL SQ SCH ×4 (00:50→23:47)
[2019-08-16] MEDS: LEVOTHYROXINE 25 MCG TAB PO SCH (05:46)
[2019-08-16 08:16] LABS: African American GFR (CKD) >90 (>60 ml/min/1.73 sqM); Anion Gap 13 mmol/L; Blood Urea Nitrogen 14 mg/dL (7-17); Calcium 9.2 mg/dL (8.4-10.2); Carbon Dioxide 22 mmol/L (22-30); Chloride 100 mmol/L (98-107); Glucose 93 mg/dL (74-99); Sodium 135 mmol/L (137-145)
[2019-08-16 08:27] LABS: Basophils # (A) 0.1 k/uL (0-0.2); Basophils % (A) 2 %; Eosinophils # (A) 0.1 k/uL (0-0.7); Eosinophils % (A) 3 %; HCT 40.9 % (34.0-46.0); HGB 14.6 gm/dL (11.4-16.0); Lymphocytes # (A) 1.3 k/uL (1.0-4.8); Lymphocytes % (A) 33 %; MCH 30.6 pg (25.0-35.0); MCHC 35.6 g/dL (31.0-37.0); MCV 86.1 fL (80.0-100.0); Mean Platelet Volume 7.2; Monocytes # (A) 0.2 k/uL (0-1.0); Monocytes % (A) 5 %; Neutrophils # (A) 2.2 k/uL (1.3-7.7); Neutrophils % (A) 57 %; Platelet Count 182 k/uL (150-450); RBC 4.75 m/uL (3.80-5.40); RDW 13.7 % (11.5-15.5); WBC 3.9 k/uL (3.8-10.6)
--- NOTE | 2019-08-16 08:45 | P.CNOR ---
History of Present Illness - [facility] Consult date: 08/16/19 Consult reason: joint pain (Bilateral hip and knee pain, low back pain.) History of present illness: This is a 69-year-old female admitted through the emergency department on 08/15/2019 with complaint of bilateral lower extremity pain and inability to ambulate. She states that her legs feel weak and she complains of bilateral knee pain, with the right being worse. She is admitted to internal medicine we're consulted for orthopedic evaluation. Past Medical History Past Medical History: Atrial Fibrillation, Thyroid Disorder Additional Past Medical History / Comment(s): noncompliant with afib, diverticulitis History of Any Multi-Drug Resistant Organisms: None Reported Past Surgical History: Appendectomy, Hysterectomy, Tonsillectomy Past Anesthesia/Blood Transfusion Reactions: No Reported Reaction Past Psychological History: Anxiety Smoking Status: Current every day smoker Past Alcohol Use History: Daily Past Drug Use History: None Reported Medications and Allergies Home Medications Medication Instructions Recorded Confirmed Type ALPRAZolam [Xanax XR] 2 mg PO DAILY@1700 07/11/19 08/15/19 History Levothyroxine Sodium [Synthroid] 25 mcg PO DAILY 07/11/19 08/15/19 History Cyclobenzaprine [Flexeril] 10 mg PO HS 08/15/19 08/15/19 History Ergocalciferol [Vitamin D2] 50,000 unit PO QMONTH 08/15/19 08/15/19 History Allergies Allergy/AdvReac Type Severity Reaction Status Date / Time Sulfa (Sulfonamide Allergy Rash/Hives Verified 08/15/19 12:29 Antibiotics) aspirin AdvReac Abdominal Verified 08/15/19 12:29 Pain ibuprofen AdvReac Abdominal Verified 08/15/19 12:29 Pain NSAIDS (Non-Steroidal AdvReac Abdominal Verified 08/15/19 12:32 Anti-Inflamma Pain Penicillins AdvReac Confusion Verified 08/15/19 12:29 METAL (UNKNOWN TYPE) Allergy Rash/Hives Uncoded 08/15/19 12:32 Physical Examination This is a pleasant 69-year-old female in no acute distress. She is alert and oriented 3. Exam of the head neck reveal no obvious deformity. She has fairly good cervical spine motion without difficulty or pain. There is no pain on palpation about cervical spine or paraspinal musculature. Exam of the upper extremities unremarkable. She has fairly good shoulder, elbow, wrist and finger motion bilaterally. Neurovascular status to the upper extremities is intact. Exam of the thoracic and lumbar spine reveal no obvious deformity. She has mild pain with palpation about the lower lumbar spine and right-sided paraspinal musculature. Exam of the lower extremities reveals no erythema or ecchymosis. She has near full extension to bilateral knees. She's lacking about 2-3 of full extension to the right knee secondary to pain. She has flexion to 100 bilaterally. No obvious effusion to either knee. Straight leg raise of the right lower extremity is positive. There is minimal crepitus noted with range of motion of the knees. She has +4/5 strength with dorsiflexion of the great toe against resistance. There is some weakness noted with plantar flexion bilaterally. The right side is a little bit more week the left. She has normal sensation to the toes. Capillary refill is less than 3 seconds. Results X-rays of pelvis and bilateral knees reveals moderate degenerative arthritis to bilateral hips. Moderate arthritis to the right knee. Mild arthritis to the l eft knee. No acute fractures noted. The visualized portion of the lower lumbar spine and pelvis x-ray reveals some degenerative changes. - Labs Labs: Abnormal Lab Results - Last 24 Hours (Table) 08/15/19 08/15/19 08/16/19 Range/Units 15:25 16:15 07:29 Sodium 136 L 135 L (137-145) mmol/L Potassium 3.0 L (3.5-5.1) mmol/L Carbon Dioxide 19 L (22-30) mmol/L BUN 18 H (7-17) mg/dL Total Bilirubin 1.5 H (0.2-1.3) mg/dL AST 37 H (14-36) U/L ALT 6 L (9-52) U/L Total Protein 8.3 H (6.3-8.2) g/dL Urine Appearance Cloudy H (Clear) Urine Protein 1+ H (Negative) Urine Ketones 2+ H (Negative) Urine Blood Small H (Negative) Ur Leukocyte Esterase Moderate H (Negative) Urine RBC 29 H (0-5) /hpf Ur Squamous Epith Cells 18 H (0-4) /hpf Urine Bacteria Occasional H (None) /hpf Urine Mucus Few H (None) /hpf Microbiology - Last 24 Hours (Table) 08/15/19 16:15 Urine Culture - Preliminary Urine,Clean Catch H & H 08/16/19 Range/Units 07:29 Hgb 14.6 (11.4-16.0) gm/dL Hct 40.9 (34.0-46.0) % Result Diagrams: 08/16/19 07:29 08/16/19 07:29 Assessment and Plan (1) Low back pain potentially associated with radiculopathy Current Visit: Yes Status: Acute Code(s): M54.5 - LOW BACK PAIN SNOMED Code(s): 499376363 (2) Bilateral hip joint arthritis Current Visit: Yes Status: Acute Code(s): M16.0 - BILATERAL PRIMARY OSTEOARTHRITIS OF HIP SNOMED Code(s): 51519435 (3) Degenerative arthritis of knee, bilateral Current Visit: Yes Status: Acute Code(s): M17.0 - BILATERAL PRIMARY OSTEOARTHRITIS OF KNEE SNOMED Code(s): 149307695895252 (4) Weakness Current Visit: Yes Status: Acute Code(s): R53.1 - WEAKNESS SNOMED Code(s): 03247671 Plan: The clinical and x-ray findings are discussed with the patient. I have recommended lumbar spine x-rays for further evaluation. I have discussed the patient that her symptoms are multifocal. She does have some arthritic changes to the hips and knees. However, she most likely has some radicular component to her symptoms. We will wait lumbar spine films and make further recommendations as indicated. In the meantime it would be recommended that she have some physical therapy to try to get her ambulating.
[2019-08-16] MEDS: THIAMINE 100 MG TAB PO SCH (09:21)
[2019-08-16] MEDS: ALPRAZolam 0.5 MG TAB PO SCH ×4 (09:21→22:25)
[2019-08-16] MEDS: MULTIVITAMINS, THERA 1 EACH TAB PO SCH (09:21)
--- NOTE | 2019-08-16 10:33 | XR ---
Lumbar spine HISTORY: Low back pain 3 views of the lumbar spine Bone mineralization is reduced which could limit sensitivity. There is anterolisthesis grade 1 L4-5. Multilevel spondylosis is present. Sclerosis present in the posterior elements of the lumbar spine. L oss of disc height greatest at L4-5 and L5-S1, vacuum phenomenon L5-S1. Suspect Schmorl's node format ion at L1 and L2 inferior endplates. Vascular calcifications are present within the aortoiliac distri bution. IMPRESSION: Osteopenia, degenerative disc disease, facet arthropathy.
[2019-08-16] MEDS ORDERED: Potassium Replacement Protocol 1 EACH MISC MISCELLANE PRN (13:19)
[2019-08-16] MEDS: SODIUM CHLORIDE 0.9% 1,000 ML IV SCH (16:37)
--- NOTE | 2019-08-16 23:13 | P.PN ---
Subjective Progress Note Date: 08/16/19 Principal diagnosis: Lateral knee pain and low back pain Patient is a 69-year-old female with a known history of hypothyroidism, osteoarthritis and questionable history of atrial fibrillation currently not on any anticoagulation, generalized anxiety, nicotine addiction came to ER with complaints of bilateral knee. Back pain. Patient states she is more concerned about her knee pain she states that both of her knees hurt however it's worse on the right. States it began acutely over the last 2-3 days. Patient does not have a history of gout. Denies any history of arthritis to the knees. She called EMS because she had difficulty walking. No other complaints at this time. No complaints of cough or sputum production. No fever no chills. No chest pain or shortness of breath. No headache or dizziness or lightheadedness. No recent travel or sick contacts. Patient was admitted to hospital in June 2019 with complaints of generalized weakness. Patient had workup done including CT head and carotid duplex and 2-D echocardiogram showed no significant abnormalities noted. TSH was within normal limits. PT OT recommends home with walker at the time. X-ray of the bilateral knees showed no fracture or dislocation. Mild to moderate narrowing of the medial lateral Tibiofemoral competent in both knees slightly more on the right side. Sodium 136, AST 37, BUN 18 9 2018 Patient says that her knee pain is better. Able to participate in physical therapy with a walker. Otherwise patient was suspected have radiculopathic symptoms from low back pain and ataxia with lumbar spine was ordered. Patient was seen by orthopedic surgery. No complaints of fever or chills. No chest pain or shortness of breath. No nausea vomiting or abdominal pain or diarrhea. No constipation. Current medications reviewed. Objective - Vital Signs Vital signs: Vital Signs Temp 97.7 F 08/16/19 07:00 Pulse 75 08/16/19 07:00 Resp 16 08/16/19 07:00 BP 131/81 08/16/19 07:00 Pulse Ox 97 08/16/19 07:00 Intake & Output 08/15/19 08/16/19 08/16/19 18:59 06:59 18:59 Intake Total 590 236 Output Total 300 Balance 290 236 Weight 77.111 kg Intake: Oral 590 236 Output: Urine 300 Other: Voiding Method Bedpan # Voids 1 - Exam PHYSICAL EXAMINATION: Patient is lying in the bed comfortably, no acute distress, awake alert and oriented.. HEENT: Normocephalic. Neck is supple. Pupils reactive. Nostrils clear. Oral cavity is moist. Ears reveal no drainage. Neck reveals no JVD, carotid bruits, or thyromegaly. CHEST EXAMINATION: Trachea is central. Symmetrical expansion. Lung lisa clear to auscultation and percussion. CARDIAC: Normal S1, S2 with no gallops. No murmurs ABDOMEN: Soft. Bowel sounds normal. No organomegaly. No abdominal bruits. Extremities: reveal no edema. No clubbing or cyanosis Neurologically awake, alert, oriented x3 with well-coordinated movements. No focal deficits noted Skin: No rash or skin lesions. Psychiatric: Coperative. Nonsuicidal Musculoskeletal: No joint swelling or deformity. Normal range of motion. - Labs CBC & Chem 7: 08/16/19 07:29 08/16/19 07:29 Labs: Abnormal Lab Results - Last 24 Hours (Table) 08/15/19 08/15/19 08/16/19 Range/Units 15:25 16:15 07:29 Sodium 136 L 135 L (137-145) mmol/L Potassium 3.0 L (3.5-5.1) mmol/L Carbon Dioxide 19 L (22-30) mmol/L BUN 18 H (7-17) mg/dL Total Bilirubin 1.5 H (0.2-1.3) mg/dL AST 37 H (14-36) U/L ALT 6 L (9-52) U/L Total Protein 8.3 H (6.3-8.2) g/dL Urine Appearance Cloudy H (Clear) Urine Protein 1+ H (Negative) Urine Ketones 2+ H (Negative) Urine Blood Small H (Negative) Ur Leukocyte Esterase Moderate H (Negative) Urine RBC 29 H (0-5) /hpf Ur Squamous Epith Cells 18 H (0-4) /hpf Urine Bacteria Occasional H (None) /hpf Urine Mucus Few H (None) /hpf Microbiology - Last 24 Hours (Table) 08/15/19 16:15 Urine Culture - Preliminary Urine,Clean Catch Assessment and Plan Assessment: Bilateral knee pain right greater than left likely due to osteoarthritis. Low back pain with possible radiculopathy symptoms Generalized weakness secondary to deconditioning and volume depletion. Continue PT OT Hypovolemic hyponatremia mild sodium level 136 Hypomagnesemia Uncontrolled hypertension Generalized anxiety and Hypothyroidism Questionable history of atrial fibrillation. Currently maintaining sinus rhythm. Nicotine addiction History of alcohol abuse DVT prophylaxis with heparin subcu Plan: Patient be continued on pain management with Tylenol 3. Flexeril will be held at this time. IV hydration gently and follow-up repeat CBC and BMP tomorrow. EKG showed normal sinus rhythm. Recent TSH level is within normal limits. Recent stroke workup including CT head, carotid duplex and 2-D echocardiogram showed no acute process or abnormality noted. Orthopedic surgery was consulted due to bilateral knee pain. Ordered x-ray of the lumbar spine. Continue with Xanax as per home dose. Further recommendations based on the clinical course. Patient was counseled extensively for smoking cessation. Prognosis is guarded. PT, OT is following.. Time with Patient: Greater than 30
[2019-08-17] MEDS: LEVOTHYROXINE 25 MCG TAB PO SCH (05:33)
[2019-08-17] MEDS: HEPARIN SODIUM,PORCINE 5,000 UNIT/ML 1 ML VIAL SQ SCH ×2 (08:28→17:14)
[2019-08-17] MEDS: NIFEdipine XL 30 MG TAB.ER.24 PO SCH (08:28)
[2019-08-17] MEDS: ALPRAZolam 0.5 MG TAB PO SCH ×4 (08:28→23:59)
[2019-08-17] MEDS: MULTIVITAMINS, THERA 1 EACH TAB PO SCH (08:28)
[2019-08-17] MEDS: THIAMINE 100 MG TAB PO SCH (08:28)
--- NOTE | 2019-08-17 08:40 | P.PN ---
Subjective Progress Note Date: 08/17/19 Principal diagnosis: Low back and right knee pain This is a 69-year-old female who we are following regarding her right knee pain and low back pain. She states that she does have history of sciatic nerve pain in the past. Her pain has been fairly well-controlled but she continues to have difficulty getting up with therapy on the nurses. She was able to get up to the bathroom but states it was not easy to do. Vital signs are stable. Objective - Vital Signs Vital signs: Vital Signs Temp 97.7 F 08/17/19 07:00 Pulse 75 08/17/19 07:00 Resp 16 08/17/19 07:00 BP 150/92 08/17/19 07:00 Pulse Ox 97 08/17/19 07:00 Intake & Output 08/16/19 08/17/19 08/17/19 18:59 06:59 18:59 Intake Total 694 10 Output Total 100 Balance 694 -90 Intake: Oral 694 10 Output: Urine 100 Other: # Voids 3 1 - Exam This is a pleasant 69-year-old female in no acute distress. She is alert and oriented 3. Exam of the lower extremities reveals no hip pain with logroll. She can lift each leg off the bed independently but has difficulty with the right leg. She has full foot and ankle motion bilaterally. - Labs CBC & Chem 7: 08/16/19 07:29 08/16/19 07:29 Labs: Microbiology - Last 24 Hours (Table) 08/15/19 16:15 Urine Culture - Final Urine,Clean Catch Assessment and Plan (1) Low back pain potentially associated with radiculopathy Current Visit: Yes Status: Acute Code(s): M54.5 - LOW BACK PAIN SNOMED Code(s): 481010135 (2) Bilateral hip joint arthritis Current Visit: Yes Status: Acute Code(s): M16.0 - BILATERAL PRIMARY OSTEOARTHRITIS OF HIP SNOMED Code(s): 31137442 (3) Degenerative arthritis of knee, bilateral Current Visit: Yes Status: Acute Code(s): M17.0 - BILATERAL PRIMARY OS TEOARTHRITIS OF KNEE SNOMED Code(s): 629626101089685 (4) Weakness Current Visit: Yes Status: Acute Code(s): R53.1 - WEAKNESS SNOMED Code(s): 64964154 Plan: The clinical and x-ray findings are discussed with the patient. I have discussed the patient that her symptoms are multifocal. She does have some arthritic changes to the hips and knees. However, she most likely has some radicular component to her symptoms. She does have degenerative disc disease in her lumbar spine. We discussed a pain management consult which she agrees to. She is offered a cortisone injection to the knee which she will decline at this time. She may be a candidate for an epidural steroid injection. We will sign off for now and follow-up as an outpatient as needed.
[2019-08-17] MEDS: SODIUM CHLORIDE 0.9% 1,000 ML IV SCH (14:25)
--- NOTE | 2019-08-17 14:32 | P.PAINCN ---
History of Present Illness - Reason for Consult Consult date: 08/17/19 back and leg pain - Chief Complaint back and leg pain - History of Present Illness 69 y/o female with acute on chronic leg and back pain. She was admitted secondary to radiculopathy and lower ext weakness. Ortho seen the patient, ordered x rays which shows sclerosis of endplates, DDD without any fractures. Patient reports that she began having this issue in May. Since then she feels that her weakness and pain in legs is become aggressively worse. She denies any bowel or bladder incontinence. She feels that she stands for short periods time or tries to walk for long periods time she has weakness. She has not had any significant evaluation outside hospital. She reports her niece wandered from the hospital to get an MRI done. She denies using any pain medication at home. Review of Systems Review of systems negative except as noted in the HPI Past Medical History Past Medical History: Atrial Fibrillation, Thyroid Disorder Additional Past Medical History / Comment(s): noncompliant with afib, diverticulitis History of Any Multi-Drug Resistant Organisms: None Reported Past Surgical History: Appendectomy, Hysterectomy, Tonsillectomy Past Anesthesia/Blood Transfusion Reactions: No Reported Reaction Past Psychological History: Anxiety Smoking Status: Current every day smoker Past Alcohol Use History: Daily Past Drug Use History: None Reported Medications and Allergies Home Medications Medication Instructions Recorded Confirmed Type ALPRAZolam [Xanax XR] 2 mg PO DAILY@1700 07/11/19 08/15/19 History Levothyroxine Sodium [Synthroid] 25 mcg PO DAILY 07/11/19 08/15/19 History Cyclobenzaprine [Flexeril] 10 mg PO HS 08/15/19 08/15/19 History Ergocalciferol [Vitamin D2] 50,000 unit PO QMONTH 08/15/19 08/15/19 History Allergies Allergy/AdvReac Type Severity Reaction Status Date / Time Sulfa (Sulfonamide Allergy Rash/Hives Verified 08/15/19 12:29 Antibiotics) aspirin AdvReac Abdominal Verified 08/15/19 12:29 Pain ibuprofen AdvReac Abdominal Verified 08/15/19 12:29 Pain NSAIDS (Non-Steroidal AdvReac Abdominal Verified 08/15/19 12:32 Anti-Inflamma Pain Penicillins AdvReac Confusion Verified 08/15/19 12:29 METAL (UNKNOWN TYPE) Allergy Rash/Hives Uncoded 08/15/19 12:32 Physical Exam Vitals: Vital Signs Temp Pulse Resp BP Pulse Ox 08/17/19 07:00 97.7 F 75 16 150/92 97 08/17/19 02:02 98.0 F 69 18 129/79 96 08/16/19 19:30 98.2 F 86 17 114/69 98 08/16/19 14:41 98.1 F 92 16 127/82 97 Intake and Output 08/16/19 08/17/19 08/17/19 22:59 06:59 14:59 Intake Total 246 Output Total 100 Balance 246 -100 Intake: Oral 246 Output: Urine 100 Other: # Voids 1 General: Awake and alert oriented 3 no distress Respiratory exam: No audible wheezing no accessory muscle usage Cardiovascular exam: regular rate, palpable bilateral pulses, no lower extremity edema Abdominal exam: No distention nontender to palpation Cervical spine: Normal alignment, Spurling's negative, facet loading negative, Supply Teacher strength is 5/5, llanes negative Lumbar spine: Loss of lumbar lordosis, forward flexed body position normal alignment, tender to palpation over bilateral paraspinal muscles, facet loading is positive bilaterally. Straight leg raise is negative. Limited range of motion due to pain with flexion, extension and side bending. Strength in lower extremities is 5 out of 5. 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 Hip flexion as well as knee extension are preserved bilaterally. Sacroiliac joints: Nontender to palpation, GROVER is negative, Ga[place]elon negative Neuro exam: Normal sensation in bilateral upper extremities, deep tendon reflexes are 2+ bilateral upper extremities. Normal sensation in bilateral lower extremities. Deep tendon reflexes are 1+ in lower extremities Psych exam: Cooperative, appropriate mood Results CBC & Chem 7: 08/16/19 07:29 08/16/19 07:29 Labs: Microbiology - Last 24 Hours (Table) 08/15/19 16:15 Urine Culture - Final Urine,Clean Catch Assessment and Plan Assessment: #1 lumbar spondylosis without myelopathy #2 lumbar radiculopathy #3 possible spinal stenosis #4 debility Plan: The plan is to continue with physical therapy on the inpatient and outpatient side. I discussed with the patient that there is no red flag symptoms from her back. I believe her pain is also mount I factorial secondary to low back pain possibly spinal stenosis as well as bilateral hip and knee pain. I've asked her to follow up with either the orthopedic doctors or the pain clinic as an outpatient. She should give us a call and schedule an appointment and we can work on a plan. At this point I do not believe any pain medication with significantly improve her overall function. I believe she should continue with [id number]-[id number] medications as tolerated. Have her follow up with the pain clinic in [facility] if she would prefer. Time with Patient: Greater than 30 PQRS Measure Charge Sheet PQRS Narrative: Smoking Status Current every day smoker Do You Want the Pneumonia No Vaccine AT THIS TIME? Blood Pressure [Right Arm] 150/92 Blood Pressure 184/100 Pain Intensity [Generalized] 3 Pain Intensity 2 Pain Scale Used Numeric (1 - 10) Scale Used Numeric (1 - 10) Home Medications: Ambulatory Orders ALPRAZolam [Xanax XR] 2 mg PO DAILY@1700 07/11/19 Levothyroxine Sodium [Synthroid] 25 mcg PO DAILY 07/11/19 Cyclobenzaprine [Flexeril] 10 mg PO HS 08/15/19 Ergocalciferol [Vitamin D2] 50,000 unit PO QMONTH 08/15/19
--- NOTE | 2019-08-17 17:01 | CDI ---
Documentation Clarification Form Date: 08/17/2019 4:45:46 PM From: Suha Calvillo RN, CCDS Admit Date: 08/15/2019 3:05:00 PM Patient Name: Dede Mclain Visit Number: [id number] Discharge Date: 08/20/2019 ATTENTION: The Clinical Documentation Specialists (CDI) and [facility] Coding Staff appreciate your assistance in clarifying documentation. Please respond to the clarification below the line at the bottom and electronically sign. The CDI & [facility] Coding staff will review the response and follow-up if needed. Please note: Queries are made part of the Legal Health Record. If you have any questions, please contact the author of this message via ITS. Dr. Tj Johnson The patient presented with extremity pain, back and knee pain. Uncontrolled hypertension is documented in your H/P and subsequent progress notes and additional clarification is needed. History/Risk Factors: Atrial fibrillation Thyroid disorder, Current every day smoker Clinical Indicators: 69-year-old female who complains on both of her knee pain worse on the right, over last 2-3 days. X-rays of the bilateral hips and knees showing no acute processes. Vital signs on admission 140/77 84 18 97.5, 140/97 80 126 179/109 78 18 166/133 72 16 Labs: Sodium 136, AST 37 BUN 18 Treatment: Monitor VS per orders Procardia XL PO daily Apresoline PO STAT x1 Pain Management with Tylenol 3 IV Hydration In your professional opinion, can you please further clarify uncontrolled hypertension? Uncontrolled Hypertension with Hypertension Urgency Other, please specify Unable to determine Uncontrolled Hypertension due to Pain MTDD
[2019-08-17] MEDS: Acetaminophen-Codeine 300-30mg TAB PO PRN (17:18)
[2019-08-18] MEDS: HEPARIN SODIUM,PORCINE 5,000 UNIT/ML 1 ML VIAL SQ SCH ×4 (00:04→23:52)
[2019-08-18] MEDS: Acetaminophen-Codeine 300-30mg TAB PO PRN ×2 (02:13→13:04)
[2019-08-18] MEDS: LEVOTHYROXINE 25 MCG TAB PO SCH (06:03)
[2019-08-18] MEDS: ALPRAZolam 0.5 MG TAB PO SCH ×4 (09:45→21:18)
[2019-08-18] MEDS: MULTIVITAMINS, THERA 1 EACH TAB PO SCH (09:45)
[2019-08-18] MEDS: NIFEdipine XL 30 MG TAB.ER.24 PO SCH (09:45)
[2019-08-18] MEDS: THIAMINE 100 MG TAB PO SCH (09:45)
[2019-08-18] MEDS: POTASSIUM CHLORIDE ER 20 MEQ TAB.ER PO SCH ×4 (13:02→22:28)
[2019-08-18] MEDS: SODIUM CHLORIDE 0.9% 1,000 ML IV SCH (17:33)
[2019-08-19] MEDS: Acetaminophen-Codeine 300-30mg TAB PO PRN ×2 (01:46→22:05)
--- NOTE | 2019-08-19 02:58 | P.PN ---
Subjective Progress Note Date: 08/17/19 Principal diagnosis: Lateral knee pain and low back pain Patient is a 69-year-old female with a known history of hypothyroidism, osteoarthritis and questionable history of atrial fibrillation currently not on any anticoagulation, generalized anxiety, nicotine addiction came to ER with complaints of bilateral knee. Back pain. Patient states she is more concerned about her knee pain she states that both of her knees hurt however it's worse on the right. States it began acutely over the last 2-3 days. Patient does not have a history of gout. Denies any history of arthritis to the knees. She called EMS because she had difficulty walking. No other complaints at this time. No complaints of cough or sputum production. No fever no chills. No chest pain or shortness of breath. No headache or dizziness or lightheadedness. No recent travel or sick contacts. Patient was admitted to hospital in June 2019 with complaints of generalized weakness. Patient had workup done including CT head and carotid duplex and 2-D echocardiogram showed no significant abnormalities noted. TSH was within normal limits. PT OT recommends home with walker at the time. X-ray of the bilateral knees showed no fracture or dislocation. Mild to moderate narrowing of the medial lateral Tibiofemoral competent in both knees slightly more on the right side. Sodium 136, AST 37, BUN 18 9 2018 Patient says that her knee pain is better. Able to participate in physical therapy with a walker. Otherwise patient was suspected have radiculopathic symptoms from low back pain and ataxia with lumbar spine was ordered. Patient was seen by orthopedic surgery. No complaints of fever or chills. No chest pain or shortness of breath. No nausea vomiting or abdominal pain or diarrhea. No constipation. 08/17/2019 Patient is lying in the bed comfortably. X-ray of the lumbar spine showed mild degenerative changes. No other recommendations from orthopedic surgery at this time. PTOT is following. Patient denied any complaints of chest pain or short of breath. No nausea vomiting or abdominal pain. No diarrhea dysuria. No constipation. Possible discharge to rehab. CMS will be consulted. Current medications reviewed. Objective - Vital Signs Vital signs: Vital Signs Temp 98.6 F 08/17/19 21:45 Pulse 84 08/17/19 21:45 Resp 17 08/17/19 21:45 BP 127/72 08/17/19 21:45 Pulse Ox 98 08/17/19 21:45 Intake & Output 08/17/19 08/17/19 08/18/19 06:59 18:59 06:59 Intake Total 10 Output Total 100 Balance -90 Intake: Oral 10 Output: Urine 100 Other: # Voids 1 2 - Exam PHYSICAL EXAMINATION: Patient is lying in the bed comfortably, no acute distress, awake alert and oriented.. HEENT: Normocephalic. Neck is supple. Pupils reactive. Nostrils clear. Oral cavity is moist. Ears reveal no drainage. Neck reveals no JVD, carotid bruits, or thyromegaly. CHEST EXAMINATION: Trachea is central. Symmetrical expansion. Lung lisa clear to auscultation and percussion. CARDIAC: Normal S1, S2 with no gallops. No murmurs ABDOMEN: Soft. Bowel sounds normal. No organomegaly. No abdominal bruits. Extremities: reveal no edema. No clubbing or cyanosis Neurologically awake, alert, oriented x3 with well-coordinated movements. No focal deficits noted Skin: No rash or skin lesions. Psychiatric: Coperative. Nonsuicidal Musculoskeletal: No joint swelling or deformity. Normal range of motion. - Labs CBC & Chem 7: 08/16/19 07:29 08/18/19 14:48 Labs: Microbiology - Last 24 Hours (Table) 08/15/19 16:15 Urine Culture - Final Urine,Clean Catch Assessment and Plan Assessment: Bilateral knee pain right greater than left likely due to osteoarthritis. Low back pain with possible radiculopathy symptoms Generalized weakness secondary to deconditioning and volume depletion. Continue PT OT Hypovolemic hyponatremia mild sodium level 136 Hypomagnesemia Uncontrolled hypertension Generalized anxiety and Hypothyroidism Questionable history of atrial fibrillation. Currently maintaining sinus r hythm. Nicotine addiction History of alcohol abuse DVT prophylaxis with heparin subcu Plan: Patient be continued on pain management with Tylenol 3. Flexeril has been held at this time. IV hydration gently . EKG showed normal sinus rhythm. Recent TSH level is within normal limits. Recent stroke workup including CT head, carotid duplex and 2-D echocardiogram showed no acute process or abnormality noted. Orthopedic surgery was consulted due to bilateral knee pain. Ordered x- ray of the lumbar spine. Continue with Xanax as per home dose. Further recommendations based on the clinical course. Patient was counseled extensively for smoking cessation. Prognosis is guarded. PT, OT is following.. Time with Patient: Greater than 30
--- NOTE | 2019-08-19 02:59 | P.PN ---
Subjective Progress Note Date: 08/18/19 Principal diagnosis: Lateral knee pain and low back pain Patient is a 69-year-old female with a known history of hypothyroidism, osteoarthritis and questionable history of atrial fibrillation currently not on any anticoagulation, generalized anxiety, nicotine addiction came to ER with complaints of bilateral knee. Back pain. Patient states she is more concerned about her knee pain she states that both of her knees hurt however it's worse on the right. States it began acutely over the last 2-3 days. Patient does not have a history of gout. Denies any history of arthritis to the knees. She called EMS because she had difficulty walking. No other complaints at this time. No complaints of cough or sputum production. No fever no chills. No chest pain or shortness of breath. No headache or dizziness or lightheadedness. No recent travel or sick contacts. Patient was admitted to hospital in June 2019 with complaints of generalized weakness. Patient had workup done including CT head and carotid duplex and 2-D echocardiogram showed no significant abnormalities noted. TSH was within normal limits. PT OT recommends home with walker at the time. X-ray of the bilateral knees showed no fracture or dislocation. Mild to moderate narrowing of the medial lateral Tibiofemoral competent in both knees slightly more on the right side. Sodium 136, AST 37, BUN 18 9 2018 Patient says that her knee pain is better. Able to participate in physical therapy with a walker. Otherwise patient was suspected have radiculopathic symptoms from low back pain and ataxia with lumbar spine was ordered. Patient was seen by orthopedic surgery. No complaints of fever or chills. No chest pain or shortness of breath. No nausea vomiting or abdominal pain or diarrhea. No constipation. 08/17/2019 Patient is lying in the bed comfortably. X-ray of the lumbar spine showed mild degenerative changes. No other recommendations from orthopedic surgery at this time. PTOT is following. Patient denied any complaints of chest pain or short of breath. No nausea vomiting or abdominal pain. No diarrhea dysuria. No constipation. Possible discharge to rehab. CMS will be consulted. 08/18/2019 Patient denied any new complaints today. Continue to be on fall precautions and bilateral knee pain is controlled with medications. No fever no chills. No nausea vomiting or abdominal pain. No chest pain or shortness of breath. Urine culture showed no growth/normal kendrick. Anticipate discharge to rehab pending placement. Current medications reviewed. Objective - Vital Signs Vital signs: Vital Signs Temp 98 F 08/18/19 15:00 Pulse 80 08/18/19 15:00 Resp 16 08/18/19 15:00 BP 135/80 08/18/19 15:00 Pulse Ox 98 08/18/19 15:00 Intake & Output 08/18/19 08/18/19 08/19/19 06:59 18:59 06:59 Intake Total 1116 236 Balance 1116 236 Intake: Intake, IV Titration 160 Amount Sodium Chloride 0.9% 1, 160 000 ml @ 20 mls/hr IV . Q24H YARELY Rx#:[id number] Oral 956 236 Other: Voiding Method Bedpan # Voids 1 2 - Exam PHYSICAL EXAMINATION: Patient is lying in the bed comfortably, no acute distress, awake alert and oriented.. HEENT: Normocephalic. Neck is supple. Pupils reactive. Nostrils clear. Oral cavity is moist. Ears reveal no drainage. Neck reveals no JVD, carotid bruits, or thyromegaly. CHEST EXAMINATION: Trachea is central. Symmetrical expansion. Lung lisa clear to auscultation and percussion. CARDIAC: Normal S1, S2 with no gallops. No murmurs ABDOMEN: Soft. Bowel sounds normal. No organomegaly. No abdominal bruits. Extremities: reveal no edema. No clubbing or cyanosis Neurologically awake, alert, oriented x3 with well-coordinated movements. No focal deficits noted Skin: No rash or skin lesions. Psychiatric: Coperative. Nonsuicidal Musculoskeletal: No joint swelling or deformity. Normal range of motion. - Labs CBC & Chem 7: 08/16/19 07:29 08/18/19 14:48 Labs: Abnormal Lab Results - Last 24 Hours (Table) 08/18/19 Range/Units 14:48 Potassium 3.4 L (3.5-5.1) mmol/L Assessment and Plan Assessment: Bilateral knee pain right greater than left likely due to osteoarthritis. Low back pain with possible radiculopathy symptoms Generalized weakness secondary to deconditioning and volume depletion. Continue PT OT Hypovolemic hyponatremia mild sodium level 136 Hypomagnesemia Uncontrolled hypertension Generalized anxiety and Hypothyroidism Questionable history of atrial fibrillation. Currently maintaining sinus rhythm. Nicotine addiction History of alcohol abuse DVT prophylaxis with heparin subcu Plan: Patient be continued on pain management with Tylenol 3. Flexeril has been held at this time. IV hydration gently . EKG showed normal sinus rhythm. Recent TSH level is within normal limits. Recent stroke workup including CT head, carotid duplex and 2-D echocardiogram showed no acute process or abnormality noted. Orthopedic surgery was consulted due to bilateral knee pain. Ordered x- ray of the lumbar spine. Continue with Xanax as per home dose. Further recommendations based on the clinical course. Patient was counseled extensively for smoking cessation. Prognosis is guarded. PT, OT is following.. Time with Patient: Greater than 30
[2019-08-19] MEDS: LEVOTHYROXINE 25 MCG TAB PO SCH (05:41)
[2019-08-19] MEDS: MULTIVITAMINS, THERA 1 EACH TAB PO SCH (09:10)
[2019-08-19] MEDS: HEPARIN SODIUM,PORCINE 5,000 UNIT/ML 1 ML VIAL SQ SCH ×2 (09:10→16:30)
[2019-08-19] MEDS: NIFEdipine XL 30 MG TAB.ER.24 PO SCH (09:10)
[2019-08-19] MEDS: ALPRAZolam 0.5 MG TAB PO SCH ×4 (09:10→22:05)
[2019-08-19] MEDS: THIAMINE 100 MG TAB PO SCH (09:10)
[2019-08-19] MEDS: SODIUM CHLORIDE 0.9% 1,000 ML IV SCH ×2 (16:46→22:04)
[2019-08-20] MEDS: HEPARIN SODIUM,PORCINE 5,000 UNIT/ML 1 ML VIAL SQ SCH ×3 (00:09→17:46)
--- NOTE | 2019-08-20 02:22 | P.PN ---
Subjective Progress Note Date: 08/19/19 Principal diagnosis: Lateral knee pain and low back pain Patient is a 69-year-old female with a known history of hypothyroidism, osteoarthritis and questionable history of atrial fibrillation currently not on any anticoagulation, generalized anxiety, nicotine addiction came to ER with complaints of bilateral knee. Back pain. Patient states she is more concerned about her knee pain she states that both of her knees hurt however it's worse on the right. States it began acutely over the last 2-3 days. Patient does not have a history of gout. Denies any history of arthritis to the knees. She called EMS because she had difficulty walking. No other complaints at this time. No complaints of cough or sputum production. No fever no chills. No chest pain or shortness of breath. No headache or dizziness or lightheadedness. No recent travel or sick contacts. Patient was admitted to hospital in June 2019 with complaints of generalized weakness. Patient had workup done including CT head and carotid duplex and 2-D echocardiogram showed no significant abnormalities noted. TSH was within normal limits. PT OT recommends home with walker at the time. X-ray of the bilateral knees showed no fracture or dislocation. Mild to moderate narrowing of the medial lateral Tibiofemoral competent in both knees slightly more on the right side. Sodium 136, AST 37, BUN 18 9 2018 Patient says that her knee pain is better. Able to participate in physical therapy with a walker. Otherwise patient was suspected have radiculopathic symptoms from low back pain and ataxia with lumbar spine was ordered. Patient was seen by orthopedic surgery. No complaints of fever or chills. No chest pain or shortness of breath. No nausea vomiting or abdominal pain or diarrhea. No constipation. 08/17/2019 Patient is lying in the bed comfortably. X-ray of the lumbar spine showed mild degenerative changes. No other recommendations from orthopedic surgery at this time. PTOT is following. Patient denied any complaints of chest pain or short of breath. No nausea vomiting or abdominal pain. No diarrhea dysuria. No constipation. Possible discharge to rehab. [facility] will be consulted. 08/18/2019 Patient denied any new complaints today. Continue to be on fall precautions and bilateral knee pain is controlled with medications. No fever no chills. No nausea vomiting or abdominal pain. No chest pain or shortness of breath. Urine culture showed no growth/normal kendrick. Anticipate discharge to rehab pending placement. 08/19/2019 Patient is currently lying in the bed comfortably. Will be continued on PT OT and possible transfer to rehab tomorrow. Tolerating oral diet. No complaints of chest pain or shortness of breath. No nausea vomiting or abdominal pain. No diarrhea dysuria or constipation. Current medications reviewed. Objective - Vital Signs Vital signs: Vital Signs Temp 98.1 F 08/19/19 14:42 Pulse 70 08/19/19 14:42 Resp 16 08/19/19 14:42 BP 133/82 08/19/19 14:42 Pulse Ox 98 08/19/19 14:42 Intake & Output 08/18/19 08/19/19 08/19/19 18:59 06:59 18:59 Intake Total 1116 496 236 Balance 1116 496 236 Intake: Intake, IV Titration 160 260 Amount Sodium Chloride 0.9% 1, 160 260 000 ml @ 20 mls/hr IV . Q24H YARELY Rx#:[id number] Oral 956 236 236 Other: Voiding Method Bedpan # Voids 2 5 3 - Exam PHYSICAL EXAMINATION: Patient is lying in the bed comfortably, no acute distress, awake alert and oriented.. HEENT: Normocephalic. Neck is supple. Pupils reactive. Nostrils clear. Oral cavity is moist. Ears reveal no drainage. Neck reveals no JVD, carotid bruits, or thyromegaly. CHEST EXAMINATION: Trachea is central. Symmetrical expansion. Lung lisa clear to auscultation and percussion. CARDIAC: Normal S1, S2 with no gallops. No murmurs ABDOMEN: Soft. Bowel sounds normal. No organomegaly. No abdominal bruits. Extremities: reveal no edema. No clubbing or cyanosis Neurologically awake, alert, oriented x3 with well-coordinated movements. No focal deficits noted Skin: No rash or skin lesions. Psychiatric: Coperative. Nonsuicidal Musculoskeletal: No joint swelling or deformity. Normal range of motion. - Labs CBC & Chem 7: 08/16/19 07:29 08/19/19 06:00 Assessment and Plan Assessment: Bilateral knee pain right greater than left likely due to osteoarthritis. Low back pain with possible radiculopathy symptoms Generalized weakness secondary to deconditioning and volume depletion. Continue PT OT Hypovolemic hyponatremia mild sodium level 136 Hypomagnesemia Uncontrolled hypertension Generalized anxiety and Hypothyroidism Questionable history of atrial fibrillation. Currently maintaining sinus rhythm. Nicotine addiction History of alcohol abuse DVT prophylaxis with heparin subcu Plan: Patient be continued on pain management with Tylenol 3. Flexeril has been held at this time. IV hydration gently . EKG showed normal sinus rhythm. Recent TSH level is within normal limits. Recent stroke workup including CT head, carotid duplex and 2-D echocardiogram showed no acute process or abnormality noted. Orthopedic surgery was consulted due to bilateral knee pain. Ordered x- ray of the lumbar spine. Continue with Xanax as per home dose. Further recommendations based on the clinical course. Patient was counseled extensively for smoking cessation. Prognosis is guarded. PT, OT is following.. Time with Patient: Greater than 30
[2019-08-20] MEDS: LEVOTHYROXINE 25 MCG TAB PO SCH (05:30)
[2019-08-20 07:36] VITALS: RESP 16
[2019-08-20 07:53] LABS: Anisocytosis Slight; Basophils # (A) 0.1 k/uL (0-0.2); Basophils % (A) 3 %; Eosinophils # (A) 0.1 k/uL (0-0.7); Eosinophils % (A) 3 %; HCT 39.5 % (34.0-46.0); HGB 13.9 gm/dL (11.4-16.0); Lymphocytes # (A) 1.2 k/uL (1.0-4.8); Lymphocytes % (A) 38 %; MCH 30.7 pg (25.0-35.0); MCHC 35.3 g/dL (31.0-37.0); MCV 86.9 fL (80.0-100.0); Mean Platelet Volume 8.3; Monocytes # (A) 0.2 k/uL (0-1.0); Monocytes % (A) 5 %; Neutrophils # (A) 1.5 k/uL (1.3-7.7); Neutrophils % (A) 49 %; Platelet Count 163 k/uL (150-450); RBC 4.55 m/uL (3.80-5.40); RDW 16.3 % (11.5-15.5)
[2019-08-20 08:08] LABS: African American GFR (CKD) >90 (>60 ml/min/1.73 sqM); Anion Gap 9 mmol/L; Blood Urea Nitrogen 14 mg/dL (7-17); Calcium 9.4 mg/dL (8.4-10.2); Carbon Dioxide 24 mmol/L (22-30); Chloride 103 mmol/L (98-107); Glucose 89 mg/dL (74-99); Potassium 3.6 mmol/L (3.5-5.1); Sodium 136 mmol/L (137-145)
[2019-08-20] MEDS: ALPRAZolam 0.5 MG TAB PO SCH ×3 (08:25→17:47)
[2019-08-20] MEDS: THIAMINE 100 MG TAB PO SCH (08:26)
[2019-08-20] MEDS: NIFEdipine XL 30 MG TAB.ER.24 PO SCH (08:26)
[2019-08-20] MEDS: MULTIVITAMINS, THERA 1 EACH TAB PO SCH (08:26)
[2019-08-20] MEDS: Acetaminophen-Codeine 300-30mg TAB PO PRN (10:44)
[2019-08-20 15:37] VITALS: BP 130/78; PULSE 80; TEMP 97.6
--- NOTE | 2019-08-20 15:39 | P.DS ---
Providers Date of admission: 08/15/19 15:05 Expected date of discharge: 08/20/19 Attending physician: Tj Johnson Consults: 08/17/19 08:34 Consult Physician Routine Consulting Provider: Munira Nguyen Consult Reason/Comments: Pain management Do you want consulting provider notified?: Yes Primary care physician: Jackie Arreaga [facility] Course: Discharge diagnoses. Bilateral knee pain right greater than left likely due to osteoarthritis. Low back pain with possible radiculopathy symptoms. Improved now. Seen by orthopedic surgery. Lumbar x-ray showed mild degenerative changes. Generalized weakness secondary to deconditioning and volume depletion. Continue PT OT Hypovolemic hyponatremia mild sodium level 136 Hypomagnesemia Uncontrolled hypertension Generalized anxiety and Hypothyroidism Questionable history of atrial fibrillation. Currently maintaining sinus rhythm. Nicotine addiction History of alcohol abuse DVT prophylaxis with heparin subcu Hospital course. Patient is a 69-year-old female with a known history of hypothyroidism, osteoarthritis and questionable history of atrial fibrillation currently not on any anticoagulation, generalized anxiety, nicotine addiction came to ER with complaints of bilateral knee. Back pain. Patient states she is more concerned about her knee pain she states that both of her knees hurt however it's worse on the right. States it began acutely over the last 2-3 days. Patient does not have a history of gout. Denies any history of arthritis to the knees. She called EMS because she had difficulty walking. No other complaints at this time. No complaints of cough or sputum production. No fever no chills. No chest pain or shortness of breath. No headache or dizziness or lightheadedness. No recent travel or sick contacts. Patient was admitted to hospital in June 2019 with complaints of generalized weakness. Patient had workup done including CT head and carotid duplex and 2-D echocardiogram showed no significant abnormalities noted. TSH was within normal limits. PT OT recommends home with walker at the time. X-ray of the bilateral knees showed no fracture or dislocation. Mild to moderate narrowing of the medial lateral Tibiofemoral competent in both knees slightly more on the right side. Sodium 136, AST 37, BUN 18 9 2018 Patient says that her knee pain is better. Able to participate in physical therapy with a walker. Otherwise patient was suspected have radiculopathic symptoms from low back pain and ataxia with lumbar spine was ordered. Patient was seen by orthopedic surgery. No complaints of fever or chills. No chest pain or shortness of breath. No nausea vomiting or abdominal pain or diarrhea. No constipation. 08/17/2019 Patient is lying in the bed comfortably. X-ray of the lumbar spine showed mild degenerative changes. No other recommendations from orthopedic surgery at this time. PTOT is following. Patient denied any complaints of chest pain or short of b reath. No nausea vomiting or abdominal pain. No diarrhea dysuria. No constipation. Possible discharge to rehab. [facility] will be consulted. 08/18/2019 Patient denied any new complaints today. Continue to be on fall precautions and bilateral knee pain is controlled with medications. No fever no chills. No nausea vomiting or abdominal pain. No chest pain or shortness of breath. Urine culture showed no growth/normal kendrick. Anticipate discharge to rehab pending placement. 08/19/2019 Patient is currently lying in the bed comfortably. Will be continued on PT OT and possible transfer to rehab tomorrow. Tolerating oral diet. No complaints of chest pain or shortness of breath. No nausea vomiting or abdominal pain. No diarrhea dysuria or constipation. 08/20/2019 Patient is currently lying in the bed comfortably. No complaints of knee pain or back pain. Patient is stable to be discharged to rehab for PT OT. Plan: Patient was continued on pain management with Tylenol 3. Flexeril has been held at this time. EKG showed normal sinus rhythm. Recent TSH level is within normal limits. Recent stroke workup including CT head, carotid duplex and 2-D echocardiogram showed no acute process or abnormality noted. Orthopedic surgery was consulted due to bilateral knee pain. Ordered x-ray of the lumbar spine. Showed no significant changes. Continue with Xanax as per home dose as needed for anxiety. PHYSICAL EXAMINATION: Patient is lying in the bed comfortably, no acute distress, awake alert and oriented.. HEENT: Normocephalic. Neck is supple. Pupils reactive. Nostrils clear. Oral cavity is moist. Ears reveal no drainage. Neck reveals no JVD, carotid bruits, or thyromegaly. CHEST EXAMINATION: Trachea is central. Symmetrical expansion. Lung lisa clear to auscultation and percussion. CARDIAC: Normal S1, S2 with no gallops. No murmurs ABDOMEN: Soft. Bowel sounds normal. No organomegaly. No abdominal bruits. Extremities: reveal no edema. No clubbing or cyanosis Neurologically awake, alert, oriented x3 with well-coordinated movements. No focal deficits noted Skin: No rash or skin lesions. Psychiatric: Coperative. Nonsuicidal Musculoskeletal: No joint swelling or deformity. Osteoarthritic changes in the knees. Normal range of motion. Vital Signs 08/20/19 08:00 Pulse Rate [ 68 Pulse Oximetery ] Respiratory 16 Rate Vital Signs - 24 hr 08/19/19 08/20/19 08/20/19 19:47 01:40 07:00 Temperature 98.4 F 97.7 F 98.5 F Pulse Rate [ 80 70 68 Pulse Oximetery ] Respiratory 14 18 16 Rate Blood Pressure 151/91 158/87 161/83 [Right Arm] O2 Sat by Pulse 99 98 98 Oximetry 08/20/19 08:00 Temperature Pulse Rate [ 68 Pulse Oximetery ] Respiratory 16 Rate Blood Pressure [Right Arm] O2 Sat by Pulse Oximetry Total time taken greater than 35 minutes including 18 minutes for counseling and coordination of care. Patient Condition at Discharge: Fair Plan - Discharge Summary New Discharge Prescriptions: New Multivitamins, Thera [Multivitamin (formulary)] 1 each PO DAILY tab Acetaminophen Tab [Tylenol] 650 mg PO Q6HR PRN tab PRN Reason: Mild Pain Or Fever > 100.5 Acetaminophen-Codeine 300-30mg [Tylenol w/codeine #3] 1 each PO Q8HR PRN 3 Days #9 tab PRN Reason: Pain Thiamine [Vitamin B-1] 100 mg PO DAILY tab ALPRAZolam [Xanax] 0.5 mg PO QID PRN #15 tab PRN Reason: Anxiety Continue Levothyroxine Sodium [Synthroid] 25 mcg PO DAILY Ergocalciferol [Vitamin D2 (DRISDOL)] 50,000 unit PO QMONTH Discontinued ALPRAZolam [Xanax XR] 2 mg PO DAILY@1700 Cyclobenzaprine [Flexeril] 10 mg PO HS Discharge Medication List Levothyroxine Sodium [Synthroid] 25 mcg PO DAILY 07/11/19 [History] Ergocalciferol [Vitamin D2 (DRISDOL)] 50,000 unit PO QMONTH 08/15/19 [History] ALPRAZolam [Xanax] 0.5 mg PO QID PRN #15 tab 08/20/19 [Rx] Acetaminophen Tab [Tylenol] 650 mg PO Q6HR PRN tab 08/20/19 [Rx] Acetaminophen-Codeine 300-30mg [Tylenol w/codeine #3] 1 each PO Q8HR PRN 3 Days #9 tab 08/20/19 [Rx] Multivitamins, Thera [Multivitamin (formulary)] 1 each PO DAILY tab 08/20/19 [Rx] Thiamine [Vitamin B-1] 100 mg PO DAILY tab 08/20/19 [Rx] Follow up Appointment(s)/Referral(s): [facility], [NON-STAFF] - Jackie Arreaga MD [Primary Care Provider] - 1-2 days Discharge Disposition: TRANSFER TO SNF/ECF
== END 2019-08-20 18:58 | DRG 554 ==
LOC: EC 12:15 → INTOOBSV 15:05 → 4SSUR 15:05 → OBSVTOIN 15:05 → 4SSUR 18:03
PROVIDERS: ADMIT Internal Medicine; ATTEND Internal Medicine
DX: M17.0 Bilateral primary osteoarthritis of knee (principal); E87.1 Hypo-osmolality and hyponatremia; M51.16 Intervertebral disc disorders with radiculopathy, lumbar region; M48.061 Spinal stenosis, lumbar region without neurogenic claudication; E03.9 Hypothyroidism, unspecified; E83.42 Hypomagnesemia; E86.1 Hypovolemia; E87.6 Hypokalemia; Z71.6 Tobacco abuse counseling; F17.210 Nicotine dependence, cigarettes, uncomplicated; F41.1 Generalized anxiety disorder; I10 Essential (primary) hypertension; I48.91 Unspecified atrial fibrillation; M16.0 Bilateral primary osteoarthritis of hip; R62.7 Adult failure to thrive; Z79.890 Hormone replacement therapy; Z90.710 Acquired absence of both cervix and uterus; Z91.19 Patient's noncompliance with other medical treatment and regimen; M10.9 Gout, unspecified; F10.11 Alcohol abuse, in remission; Z88.6 Allergy status to analgesic agent; Z88.0 Allergy status to penicillin; Z88.2 Allergy status to sulfonamides; Z60.2 Problems related to living alone
CPT/HCPCS: 36415; 72100; 73521; 80048; 80053; 81001; 82550; 83605; 83735; 84132; 85025; 87086; 93005; 96361; 96365; 99285

== ENCOUNTER 2024-02-13 10:36 | Emergency (ER) | payer MEDICARE, OTHER ==
[2024-02-13 10:49] LABS: ABG Base Excess -0.1 mmol/L; ABG HCO3 25 mmol/L (21-25); ABG Oxygen Saturation 97.9 % (94-97); ABG PCO2 40 mmHg (35-45); ABG PO2 120 mmHg (83-108); ABG TCO2 26 mmol/L (19-24); Allen Test Performed? Yes
--- NOTE | 2024-02-13 10:53 | ED ---
General Adult HPI - General Stated complaint: AMS Time Seen by Provider: 02/13/24 10:36 Source: patient, RN notes reviewed, old records reviewed - History of Present Illness Initial comments: This is a 73-year-old female with a past medical history significant for COPD and congestive heart failure. According to EMS patient was found on the ground today and if she was confused at that time her pulse ox was in the 50s and her s kin was very mottled and particularly her legs. Patient was put on oxygen her O2 sat came up to the 90s. Patient was still confused thinking she was still in her bed when she was lying on the floor. According to EMS family stated that she is a DNR. Patient currently is unable to give any accurate history but states she is cold. - Related Data Home Medications Medication Instructions Recorded Confirmed Ergocalciferol [Vitamin D2 50,000 unit PO QMONTH 08/15/19 02/13/24 (DRISDOL)] ALPRAZolam [Xanax] 0.5 mg PO BID 02/13/24 02/13/24 Albuterol Sulfate [Albuterol 2 puff PO RT-Q6H PRN 02/13/24 02/13/24 Sulfate Hfa] Furosemide [Lasix] 20 mg PO BID 02/13/24 02/13/24 Mirtazapine [Remeron] 15 mg PO HS 02/13/24 02/13/24 Potassium Chloride ER [K-Dur 10] 10 meq PO BID 02/13/24 02/13/24 Allergies Allergy/AdvReac Type Severity Reaction Status Date / Time Sulfa (Sulfonamide Allergy Rash/Hives Verified 02/13/24 11:45 Antibiotics) aspirin AdvReac Abdominal Verified 02/13/24 11:45 Pain ibuprofen AdvReac Abdominal Verified 02/13/24 11:45 Pain NSAIDS (Non-Steroidal AdvReac Abdominal Verified 02/13/24 11:45 Anti-Inflamma Pain Penicillins AdvReac Confusion Verified 02/13/24 11:45 METAL (UNKNOWN TYPE) Allergy Rash/Hives Uncoded 02/13/24 11:45 Review of Systems ROS Statement: Those systems with pertinent positive or pertinent negative responses have been documented in the HPI. ROS Other: All systems not noted in ROS Statement are negative. Past Medical History Past Medical History: Atrial Fibrillation, Thyroid Disorder Additional Past Medical History / Comment(s): noncompliant with afib, diverticulitis History of Any Multi-Drug Resistant Organisms: None Reported Past Surgical History: Appendectomy, Hysterectomy, Tonsillectomy Past Anesthesia/Blood Transfusion Reactions: No Reported Reaction Past Psychological History: Anxiety Past Alcohol Use History: Daily Past Drug Use History: None Reported General Exam - General Exam Comments Initial Comments: GENERAL: Patient is well-developed and well-nourished. Patient is nontoxic and well- hydrated and is in mild distress. ENT: Neck is soft and supple. No significant lymphadenopathy is noted. Oropharynx is clear. Moist mucous membranes. Neck has full range of motion without eliciting any pain. EYES: The sclera were anicteric and conjunctiva were pink and moist. Extraocular movements were intact and pupils were equal round and reactive to light. Eyel ids were unremarkable. PULMONARY: Unlabored respirations. Good breath sounds bilaterally. Patient has crackles in the right base CARDIOVASCULAR: There is a regular rate and rhythm without any murmurs gallops or rubs. ABDOMEN: Soft and nontender with normal bowel sounds. SKIN: Skin is clear with no lesions or rashes and otherwise unremarkable. NEUROLOGIC: Patient is alert and oriented x 1. Cranial nerves II through XII are grossly intact. Motor and sensory are also intact. Normal speech, volume and content. Symmetrical smile. MUSCULOSKELETAL: Normal extremities with adequate strength and full range of motion. Patient's legs are mottled equally LYMPHATICS: No significant lymphadenopathy is noted PSYCHIATRIC: Normal psychiatric evaluation. Course Vital Signs 02/13/24 02/13/24 02/13/24 10:40 12:00 12:15 Temperature 99.4 F Pulse Rate 84 85 89 Respiratory 24 26 H 27 H Rate Blood Pressure 144/107 156/87 160/112 O2 Sat by Pulse 90 L 100 98 Oximetry 02/13/24 02/13/24 02/13/24 12:30 12:52 13:30 Temperature Pulse Rate 90 90 81 Respiratory 22 24 20 Rate Blood Pressure 178/100 184/118 187/103 O2 Sat by Pulse 97 97 94 L Oximetry 02/13/24 13:41 Temperature Pulse Rate 85 Respiratory 23 Rate Blood Pressure 187/103 O2 Sat by Pulse 95 Oximetry Medical Decision Making - Medical Decision Making EKG is interpreted by myself. EKG shows a sinus rhythm with occasional PVC at a rate of 90 bpm parables 144 QRS 106 QT interval is 401 QTc is 449. Patient's EKG shows no ST segment ovation or depression. Patient had pulmonary edema so patient will not be given the fluid bolus for her potential pneumonia. Was pt. sent in by a medical professional or institution ([facility]BAR Villavicencio, [employer], urgent care, hospital, or fpc...) When possible be specific @ -No Did you speak to anyone other than the patient for history (EMS, parent, family, police, friend...)? What history was obtained from this source @ -I spoke with the daughter about the patient's care Did you review nursing and triage notes (agree or disagree)? Why? @ -I reviewed and agree with nursing and triage notes Were old charts reviewed (outside hosp., previous admission, EMS record, old EKG, old radiological studies, urgent care reports/EKG's, fpc records)? Report findings @ -I reviewed prior charts and prior lab and this patient Differential Diagnosis (chest pain, altered mental status, abdominal pain women, abdominal pain men, vaginal bleeding, weakness, fever, dyspnea, syncope, headache, dizziness, GI bleed, back pain, seizure, CVA, palpatations, mental health, musculoskeletal)? @ -Differential Dyspnea: Coronary syndrome, arrhythmia, tamponade, asthma, COPD, pulmonary embolism, pneumonia, pneumothorax, pulmonary effusion, anaphylaxis, diabetic ketoacidosis, flailed chest, pulmonary contusion, diaphragmatic rupture, anemia, neuromuscular, this is not meant to be an all-inclusive list. EKG interpreted by me (3pts min.). @ -As above X-rays interpreted by me (1pt min.). @ -Chest x-ray shows large pleural effusions CT interpreted by me (1pt min.). @ -CT scan shows large pleural effusions and a PE cannot be ruled out U/S interpreted by me (1pt. min.). @ -None done What testing was considered but not performed or refused? (CT, X-rays, U/S, labs)? Why? @ -None What meds were considered but not given or refused? Why? @ -None Did you discuss the management of the patient with other professionals (professionals i.e. AMBAR Villavicencio, DIRECT[employer]URSING, lab, RT, psych nurse, psychosocial rehabilitation counselor, counseling specialist, teacher, chief accounting officer, family service caseworker)? Give summary @ -I spoke with sound physicians and they agreed to admit the patient Was smoking cessation discussed for >3mins.? @ -No Was critical care preformed (if so, how long)? @ -No Were there social determinants of health that impacted care today? How? (Homelessness, low income, unemployed, alcoholism, drug addiction, transportation, low edu. Level, literacy, decrease access to med. care, long-term, rehab)? @ -No Was there de-escalation of care discussed even if they declined (Discuss DNR or withdrawal of care, Hospice)? DNR status @ -No What co-morbidities impacted this encounter? (DM, HTN, Smoking, COPD, CAD, Cancer, CVA, ARF, Chemo, Hep., AIDS, mental health diagnosis, sleep apnea, morbid obesity)? @ -None Was patient admitted / discharged? Hospital course, mention meds given and route, prescriptions, significant lab abnormalities, going to OR and other pertinent info. @ -Daughter arrived and daughter is power of state attorney and she stated that her mother's wishes were that she become comfort care patient and wanted no intervention. Daughter agreed that no antibiotics no blood thinners just keep her mother comfortable with her request. Undiagnosed new problem with uncertain prognosis? @ -No Drug Therapy requiring intensive monitoring for toxicity (Heparin, Nitro, Insulin, Cardizem)? @ -No Were any procedures done? @ -No Diagnosis/symptom? @ -Bilateral pleural effusions Acute, or Chronic, or Acute on Chronic? @ -Acute Uncomplicated (without systemic symptoms) or Complicated (systemic symptoms)? @ -Complicated Side effects of treatment? @ -No Exacerbation, Progression, or Severe Exacerbation? @ -No Poses a threat to life or bodily function? How? (Chest pain, [place], [place], pneumonia, PE, COPD, DKA, ARF, appy, cholecystitis, CVA, Diverticulitis, Homicidal, Suicidal, threat to staff... and all critical care pts) @ -Yes this could lead to hypoxia and endorgan dysfunction Diagnosis/symptom? @ -Pulmonary edema Acute, or Chronic, or Acute on Chronic? @ -Acute Uncomplicated (without systemic symptoms) or Complicated (systemic symptoms)? @ -Complicated Side effects of treatment? @ -None Exacerbation, Progression, or Severe Exacerbation] @ -No Poses a threat to life or bodily function? @ -Yes this can lead to hypoxia and endorgan dysfunction - Lab Data Result diagrams: 02/13/24 11:07 02/13/24 11:07 Lab Results 02/13/24 02/13/24 02/13/24 Range/Units 10:46 11:03 11:07 WBC 10.7 H (3.8-10.6) k/uL RBC 5.71 H (3.80-5.40) m/uL Hgb 16.5 H (11.4-16.0) gm/dL Hct 52.1 H (34.0-46.0) % MCV 91.3 (80.0-100.0) fL MCH 28.9 (25.0-35.0) pg MCHC 31.6 (31.0-37.0) g/dL RDW 15.1 (11.5-15.5) % Plt Count 232 (150-450) k/uL MPV 8.7 Neutrophils % 92 % Lymphocytes % 5 % Monocytes % 3 % Eosinophils % 0 % Basophils % 0 % Neutrophils # 9.8 H (1.3-7.7) k/uL Lymphocytes # 0.5 L (1.0-4.8) k/uL Monocytes # 0.3 (0-1.0) k/uL Eosinophils # 0.0 (0-0.7) k/uL Basophils # 0.0 (0-0.2) k/uL Hypochromasia Slight PT (10.0-12.5) sec INR (<1.2) APTT (22.0-30.0) sec D-Dimer (<0.60) mg/L FEU Sample Site rrad ABG pH 7.40 (7.35-7.45) ABG pCO2 40 (35-45) mmHg ABG pO2 120 H (83-108) mmHg ABG HCO3 25 (21-25) mmol/L ABG Total CO2 26 H (19-24) mmol/L ABG O2 Saturation 97.9 H (94-97) % ABG Base Excess -0.1 mmol/L Ion Test Yes FiO2 100 % Sodium (137-145) mmol/L Potassium (3.5-5.1) mmol/L Chloride (98-107) mmol/L Carbon Dioxide (22-30) mmol/L Anion Gap mmol/L BUN (7-17) mg/dL Creatinine (0.52-1.04) mg/dL Est GFR (CKD-EPI)AfAm (>60 ml/min/1.73 sqM) Est GFR (CKD-EPI)NonAf (>60 ml/min/1.73 sqM) Glucose (74-99) mg/dL Lactic Ac Sepsis Rflx Plasma Lactic Acid Mark (0.7-2.0) mmol/L Calcium (8.4-10.2) mg/dL Magnesium (1.6-2.3) mg/dL Total Bilirubin (0.2-1.3) mg/dL AST (14-36) U/L ALT (4-34) U/L Alkaline Phosphatase (38-126) U/L Troponin I (0.000-0.034) ng/mL NT-Pro-B Natriuret Pep pg/mL Total Protein (6.3-8.2) g/dL Albumin (3.5-5.0) g/dL Urine Color Dark Yellow Urine Appearance Cloudy H (Clear) Urine pH 6.0 (5.0-8.0) Ur Specific Ellinger 1.019 (1.001-1.035) Urine Protein 3+ H (Negative) Urine Glucose (UA) Negative (Negative) Urine Ketones Negative (Negative) Urine Blood Small H (Negative) Urine Nitrite Negative (Negative) Urine Bilirubin 1+ H (Negative) Urine Urobilinogen 6.0 (<2.0) mg/dL Ur Leukocyte Esterase Negative (Negative) Urine RBC 20 H (0-5) /hpf Urine WBC 14 H (0-5) /hpf Ur Squamous Epith Cells 4 (0-4) /hpf Urine Bacteria Rare H (None) /hpf Hyaline Casts 137 H (0-2) /lpf Granular Casts 1 (0) /lpf Urine Mucus Moderate H (None) /hpf 02/13/24 02/13/24 02/13/24 Range/Units 11:07 11:07 11:07 WBC (3.8-10.6) k/uL RBC (3.80-5.40) m/uL Hgb (11.4-16.0) gm/dL Hct (34.0-46.0) % MCV (80.0-100.0) fL MCH (25.0-35.0) pg MCHC (31.0-37.0) g/dL RDW (11.5-15.5) % Plt Count (150-450) k/uL MPV Neutrophils % % Lymphocytes % % Monocytes % % Eosinophils % % Basophils % % Neutrophils # (1.3-7.7) k/uL Lymphocytes # (1.0-4.8) k/uL Monocytes # (0-1.0) k/uL Eosinophils # (0-0.7) k/uL Basophils # (0-0.2) k/uL Hypochromasia PT 19.0 H (10.0-12.5) sec INR 1.9 H (<1.2) APTT 25.8 (22.0-30.0) sec D-Dimer 14.97 H (<0.60) mg/L FEU Sample Site ABG pH (7.35-7.45) ABG pCO2 (35-45) mmHg ABG pO2 (83-108) mmHg ABG HCO3 (21-25) mmol/L ABG Total CO2 (19-24) mmol/L ABG O2 Saturation (94-97) % ABG Base Excess mmol/L Ion Test FiO2 % Sodium 141 (137-145) mmol/L Potassium 4.2 (3.5-5.1) mmol/L Chloride 96 L (98-107) mmol/L Carbon Dioxide 26 (22-30) mmol/L Anion Gap 19 mmol/L BUN 40 H (7-17) mg/dL Creatinine 1.62 H (0.52-1.04) mg/dL Est GFR (CKD-EPI)AfAm 36 (>60 ml/min/1.73 sqM) Est GFR (CKD-EPI)NonAf 31 (>60 ml/min/1.73 sqM) Glucose 107 H (74-99) mg/dL Lactic Ac Sepsis Rflx Plasma Lactic Acid Mark 5.1 H* (0.7-2.0) mmol/L Calcium 8.8 (8.4-10.2) mg/dL Magnesium 1.8 (1.6-2.3) mg/dL Total Bilirubin 3.5 H (0.2-1.3) mg/dL AST 2182 H (14-36) U/L ALT 1213 H (4-34) U/L Alkaline Phosphatase 126 (38-126) U/L Troponin I (0.000-0.034) ng/mL NT-Pro-B Natriuret Pep 513644 pg/mL Total Protein 9.0 H (6.3-8.2) g/dL Albumin 4.4 (3.5-5.0) g/dL Urine Color Urine Appearance (Clear) Urine pH (5.0-8.0) Ur Specific Ellinger (1.001-1.035) Urine Protein (Negative) Urine Glucose (UA) (Negative) Urine Ketones (Negative) Urine Blood (Negative) Urine Nitrite (Negative) Urine Bilirubin (Negative) Urine Urobilinogen (<2.0) mg/dL Ur Leukocyte Esterase (Negative) Urine RBC (0-5) /hpf Urine WBC (0-5) /hpf Ur Squamous Epith Cells (0-4) /hpf Urine Bacteria (None) /hpf Hyaline Casts (0-2) /lpf Granular Casts (0) /lpf Urine Mucus (None) /hpf 02/13/24 02/13/24 Range/Units 11:07 11:51 WBC (3.8-10.6) k/uL RBC (3.80-5.40) m/uL Hgb (11.4-16.0) gm/dL Hct (34.0-46.0) % MCV (80.0-100.0) fL MCH (25.0-35.0) pg MCHC (31.0-37.0) g/dL RDW (11.5-15.5) % Plt Count (150-450) k/uL MPV Neutrophils % % Lymphocytes % % Monocytes % % Eosinophils % % Basophils % % Neutrophils # (1.3-7.7) k/uL Lymphocytes # (1.0-4.8) k/uL Monocytes # (0-1.0) k/uL Eosinophils # (0-0.7) k/uL Basophils # (0-0.2) k/uL Hypochromasia PT (10.0-12.5) sec INR (<1.2) APTT (22.0-30.0) sec D-Dimer (<0.60) mg/L FEU Sample Site ABG pH (7.35-7.45) ABG pCO2 (35-45) mmHg ABG pO2 (83-108) mmHg ABG HCO3 (21-25) mmol/L ABG Total CO2 (19-24) mmol/L ABG O2 Saturation (94-97) % ABG Base Excess mmol/L Ion Test FiO2 % Sodium (137-145) mmol/L Potassium (3.5-5.1) mmol/L Chloride (98-107) mmol/L Carbon Dioxide (22-30) mmol/L Anion Gap mmol/L BUN (7-17) mg/dL Creatinine (0.52-1.04) mg/dL Est GFR (CKD-EPI)AfAm (>60 ml/min/1.73 sqM) Est GFR (CKD-EPI)NonAf (>60 ml/min/1.73 sqM) Glucose (74-99) mg/dL Lactic Ac Sepsis Rflx Y Plasma Lactic Acid Mark (0.7-2.0) mmol/L Calcium (8.4-10.2) mg/dL Magnesium (1.6-2.3) mg/dL Total Bilirubin (0.2-1.3) mg/dL AST (14-36) U/L ALT (4-34) U/L Alkaline Phosphatase (38-126) U/L Troponin I 0.441 H* (0.000-0.034) ng/mL NT-Pro-B Natriuret Pep pg/mL Total Protein (6.3-8.2) g/dL Albumin (3.5-5.0) g/dL Urine Color Urine Appearance (Clear) Urine pH (5.0-8.0) Ur Specific Ellinger (1.001-1.035) Urine Protein (Negative) Urine Glucose (UA) (Negative) Urine Ketones (Negative) Urine Blood (Negative) Urine Nitrite (Negative) Urine Bilirubin (Negative) Urine Urobilinogen (<2.0) mg/dL Ur Leukocyte Esterase (Negative) Urine RBC (0-5) /hpf Urine WBC (0-5) /hpf Ur Squamous Epith Cells (0-4) /hpf Urine Bacteria (None) /hpf Hyaline Casts (0-2) /lpf Granular Casts (0) /lpf Urine Mucus (None) /hpf Disposition Clinical Impression: Acute pulmonary edema, Bilateral pleural effusion Disposition: ADMITTED IP TO THIS HOSP Referrals: None,Stated [Primary Care Provider] - 1-2 days Time of Disposition: 15:01
[2024-02-13 11:09] VITALS: TEMP 99.4
[2024-02-13 11:30] LABS: Basophils % (A) 0 %; Eosinophils % (A) 0 %; HCT 52.1 % (34.0-46.0); HGB 16.5 gm/dL (11.4-16.0); Hypochromasia Slight; Lymphocytes # (A) 0.5 k/uL (1.0-4.8); Lymphocytes % (A) 5 %; MCH 28.9 pg (25.0-35.0); MCHC 31.6 g/dL (31.0-37.0); MCV 91.3 fL (80.0-100.0); Mean Platelet Volume 8.7; Monocytes # (A) 0.3 k/uL (0-1.0); Monocytes % (A) 3 %; Neutrophils # (A) 9.8 k/uL (1.3-7.7); Neutrophils % (A) 92 %; Platelet Count 232 k/uL (150-450); RBC 5.71 m/uL (3.80-5.40); RDW 15.1 % (11.5-15.5); WBC 10.7 k/uL (3.8-10.6)
[2024-02-13 11:31] LABS: Appearance,Urine Cloudy (Clear); Bacteria,Urine Rare /hpf; Bilirubin,Urine 1+ (Negative); Blood,Urine Small (Negative); Color,Urine Dark Yellow; Glucose,Urine (UA) Negative (Negative); Granular Casts,Urine 1 /lpf (0); Hyaline Casts,Urine 137 /lpf (0-2); Ketones,Urine Negative (Negative); Leukocyte Esterase,Urine Negative (Negative); Mucus,Urine Moderate /hpf; Nitrite,Urine Negative (Negative); Protein,Urine 3+ (Negative); RBC,Urine 20 /hpf (0-5); Specific Gravity,Urine 1.019 (1.001-1.035); Squamous Epithelial Cell,Urine 4 /hpf (0-4); WBC,Urine 14 /hpf (0-5)
[2024-02-13 11:45] LABS: African American GFR (CKD) 36 (>60 ml/min/1.73 sqM); Albumin 4.4 g/dL (3.5-5.0); Alkaline Phosphatase 126 U/L (38-126); Anion Gap 19 mmol/L; Blood Urea Nitrogen 40 mg/dL (7-17); Calcium 8.8 mg/dL (8.4-10.2); Carbon Dioxide 26 mmol/L (22-30); Chloride 96 mmol/L (98-107); Glucose 107 mg/dL (74-99); Magnesium 1.8 mg/dL (1.6-2.3); Non-African American GFR(CKD) 31 (>60 ml/min/1.73 sqM); Potassium 4.2 mmol/L (3.5-5.1); Sodium 141 mmol/L (137-145); Total Bilirubin 3.5 mg/dL (0.2-1.3)
[2024-02-13 11:50] LABS: INR 1.9 (<1.2); Partial Thromboplastin Time 25.8 sec (22.0-30.0)
--- NOTE | 2024-02-13 11:54 | XR ---
EXAMINATION TYPE: XR chest 2V DATE OF EXAM: 02/13/2024 COMPARISON: 07/11/2019 TECHNIQUE: PA and lateral views submitted. HISTORY: Shortness of breath FINDINGS: Bilateral consolidation and pleural effusion. No sizable pneumothorax. Bilateral shoulder arthropathy . Degenerative changes. Diffuse osteopenia. IMPRESSION: 1. Bilateral moderate pleural effusions greater on the right correlate for underlying pneumonia. Othe rwise consider CHF.
[2024-02-13] MEDS: cefTRIAXone IN SWFI 1,000 MG/10 ML SYRINGE IVP STA ×2 (12:23)
[2024-02-13 12:42] LABS: ALT 1213 U/L (4-34); NT-Pro-B-Type Natriuretic Pept 141000 pg/mL
[2024-02-13 12:53] LABS: AST 2182 U/L (14-36)
[2024-02-13] MEDS: hydrALAZINE HCL 20 MG/ML 1 ML VIAL IVP STA (13:21)
--- NOTE | 2024-02-13 14:45 | CT ---
EXAMINATION TYPE: CT brain wo con CT DLP: 1538.1 mGycm, Automated exposure control for dose reduction was used. DATE OF EXAM: 02/13/2024 1:18 PM COMPARISON: CT brain 07/11/2019. CLINICAL INDICATION:Female, 73 years old with history of Altered mental status, ams TECHNIQUE: Brain: Axial CT images of the brain were obtained with coronal and sagittal reformats created and rev iewed. Contrast used: None. Oral contrast used: None. FINDINGS: Brain: Extra-axial spaces: Left middle cranial fossa arachnoid cyst is reidentified. No abnormal extra-axial fluid collections otherwise. Ventricular system: Somewhat prominent due to age-related involution. Cerebral parenchyma: No acute intraparenchymal hemorrhage or mass effect. 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 The corea-white junction is well differentiated. Scattered hypoattenuating areas ar e seen within the white matter. Cerebellum: Unremarkable. Mass effect: No evidence of midline shift. Intracranial vasculature: unremarkable Soft tissues: Normal. Calvarium/osseous structures: No depressed skull fracture. Paranasal sinuses and mastoid air cells: Mild scattered paranasal sinus disease. Visualized orbits: Orbital contents are intact. IMPRESSION: No acute intracranial process. Chronic periventricular and deep white matter microangiopathic changes. Age-related involution.
--- NOTE | 2024-02-13 15:09 | CT ---
EXAMINATION TYPE: CT chest angio for PE CT DLP: 214.2 mGycm, Automated exposure control for dose reduction was used. DATE OF EXAM: 02/13/2024 1:19 PM COMPARISON: Chest radiograph from same day. Multiple CTs of the chest with most recent on . CLINICAL INDICATION:Female, 73 years old with history of Difficulty breathing; Elevated D-dimer and D yspnea TECHNIQUE/CONTRAST: CTA scan of the thorax is performed with IV Contrast, patient injected with 80 ml mL of Isovue 370, M IP images are created and reviewed these are created on a separate workstation.. FINDINGS: Pulmonary Artery: There is no evidence for a filling defect within the pulmonary vasculature to sugge st acute pulmonary embolism. The pulmonary artery is of normal size. Lungs/Pleura: Very large pleural effusions, right worse than left with moderate associated compressiv e atelectasis. Pneumonia cannot be excluded. Airway: Large airways are patent. Heart: The heart is enlarged. Vasculature: The ascending aorta is ectatic at 41 mm but not aneurysmal. Mediastinum: No gross evidence of adenopathy. Musculoskeletal: No acute osseous abnormalities Soft Tissues: Unremarkable. Lower neck: No significant findings. Upper Abdomen: No significant findings. IMPRESSION: 1. No evidence of pulmonary embolism. 2. Very large bilateral pleural effusions, right worse than left with associated atelectasis. Pneumon ia cannot be excluded.
[2024-02-13 15:46] VITALS: BP 179/95; PULSE 82; RESP 38
== END 2024-02-13 16:01 | disposition other institution (70) ==
LOC: EC 10:36 → SUPCPDRO 10:36 → EC 16:01
DX: J81.0 Acute pulmonary edema (principal); J90 Pleural effusion, not elsewhere classified; I50.9 Heart failure, unspecified; J44.9 Chronic obstructive pulmonary disease, unspecified; Z86.59 Personal history of other mental and behavioral disorders; Z88.5 Allergy status to narcotic agent; Z88.0 Allergy status to penicillin; Z88.8 Allergy status to other drugs, medicaments and biological substances; Z88.6 Allergy status to analgesic agent; Z88.2 Allergy status to sulfonamides
CPT/HCPCS: 99285; 96374; 96375; 36415; 36600; 93005; 85379; 83880; 80053; 82805; 83605; 83735; 84484; 85025; 85610; 85730; 81001; 87040; 71046; 70450; 71275; J0360; J0696; Q9967

== ENCOUNTER 2024-02-13 15:22 | Inpatient (IN) | payer MEDICAID, MEDICARE, OTHER ==
[2024-02-13] MEDS ORDERED: GLYCOPYRROLATE 0.2 MG/ML 2 ML VIAL IVP PRN (15:52)
[2024-02-13] MEDS ORDERED: ACETAMINOPHEN TAB 325 MG TAB PO PRN (15:52)
[2024-02-13] MEDS ORDERED: DRY MOUTH SPRAY 44.3 SPRAY/44.3 ML SPRAY MUCOUS MEM PRN (15:52)
--- NOTE | 2024-02-13 16:02 | P.HPIM ---
History of Present Illness H&P Date: 02/13/24 Patient is a 73-year-old female with history of end-stage heart failure, COPD presenting from home after being found down on the floor and respiratory distress. Patient has been enrolled in palliative care over 1 month ago. She has a caregiver at home as well as family to help out. They have been actively trying to get her into hospice care. She was last seen by daughter on Tuesday, today the caregiver came to check on her, and found her on the floor. She looked cold and was in respiratory distress. Currently she denies any severe chest pain, abdominal pain, nausea, vomiting, urinary or bowel complaints. In the ER, temperature was 99.4, pulse 84, respiratory rate 24, blood pressure 144/107, saturating at 90% on 15 L. WBC 10.7, hemoglobin 16.5, INR 1.9, D-dimer 14.7, pH 7.4, creatinine 1.62, lactate 5.1, total bili 3.5, AST 2000, ALT 1000, proBNP 141,000, troponin 0.441. EKG independently interpreted, shows sinus rhythm. Chest x-ray shows right-sided pleural effusion, and a smaller left- sided pleural effusion. CT did not show any acute process. CTA chest also demonstrated bilateral effusion greater on the right. Patient and family wants to enroll in hospice care. Hospice consulted. Pertinent positives and negatives as discussed in HPI, a complete review of systems was performed and all other systems are negative. Patient seen and examined at bedside. Vital signs reviewed General: nontoxic, no distress, chronically ill-appearing Derm: warm, dry Head: atraumatic, normocephalic, symmetric Eyes: EOMI, no lid lag, anicteric sclera, pupils equal round reactive to light ENT: Nose and ears atraumatic Neck: No thyromegaly, supple Mouth: no lip lesion, mucus membranes moist Cardiovascular: S1S2 reg, no murmur, no edema Lungs: Bibasilar Rales, supplemental oxygen Abdominal: soft, nontender to palpation, no guarding, no appreciable organomegaly Ext: no gross muscle atrophy, muscle strength muscle strength 5 out of 5 in all 4 extremities, no contractures Neuro: CN II-XII grossly intact Psych: Alert, oriented, appropriate affect Assessment/Plan: Active: End-stage heart failure with exacerbation, unclear EF COPD on home oxygen Bilateral pleural effusion Hypertensive emergency DARREN? Lactic acidosis Acute liver failure Discussed management with hospice care nurse Oral Tylenol as needed for pain control, oral morphine 0.25 mg every 4 hours as needed for dyspnea, IV morphine 2 mg every 15 minute as needed for breakthrough pain Ativan 1 mg IV every 6 hours as needed for anxiety Xanax 0.5 mg p.o. 3 times daily scheduled Also on Robinul, atropine, and scopolamine The patient is admitted with an anticipated greater than 2 midnight stay as inpatient status for comfort care measures. Surrogate decision-maker: Daughter CODE STATUS: DNR/DNI Anticipated discharge date: 1 to [address]: Hospice facility A total of 55 minutes was spent on the care of this complex patient more than 50% of the time was spent in counseling and care coordination. Past Medical History Past Medical History: Atrial Fibrillation, Thyroid Disorder Additional Past Medical History / Comment(s): noncompliant with afib, diverticulitis History of Any Multi-Drug Resistant Organisms: None Reported Past Surgical History: Appendectomy, Hysterectomy, Tonsillectomy Past Anesthesia/Blood Transfusion Reactions: No Reported Reaction Past Psychological History: Anxiety Past Alcohol Use History: Daily Past Drug Use History: None Reported Medications and Allergies Home Medications Medication Instructions Recorded Confirmed Type Ergocalciferol [Vitamin D2 50,000 unit PO QMONTH 08/15/19 02/13/24 History (DRISDOL)] ALPRAZolam [Xanax] 0.5 mg PO BID 02/13/24 02/13/24 History Albuterol Sulfate [Albuterol 2 puff PO RT-Q6H PRN 02/13/24 02/13/24 History Sulfate Hfa] Furosemide [Lasix] 20 mg PO BID 02/13/24 02/13/24 History Mirtazapine [Remeron] 15 mg PO HS 02/13/24 02/13/24 History Potassium Chloride ER [K-Dur 10] 10 meq PO BID 02/13/24 02/13/24 History Allergies Allergy/AdvReac Type Severity Reaction Status Date / Time Sulfa (Sulfonamide Allergy Rash/Hives Verified 02/13/24 11:45 Antibiotics) aspirin AdvReac Abdominal Verified 02/13/24 11:45 Pain ibuprofen AdvReac Abdominal Verified 02/13/24 11:45 Pain NSAIDS (Non-Steroidal AdvReac Abdominal Verified 02/13/24 11:45 Anti-Inflamma Pain Penicillins AdvReac Confusion Verified 02/13/24 11:45 METAL (UNKNOWN TYPE) Allergy Rash/Hives Uncoded 02/13/24 11:45 Physical Exam Vitals: Intake and Output 02/13/24 02/13/24 02/13/24 06:59 14:59 22:59 Other: Weight 49 kg
[2024-02-13] MEDS: SCOPOLAMINE 1 MG/72 HR PATCH TRANSDERM SCH (17:07)
[2024-02-13] MEDS: ALPRAZolam 0.5 MG TAB PO SCH (17:07)
[2024-02-13] MEDS: MORPHINE CONC SOLN 10mg/0.5mL ORAL SYRG PO PRN (17:17)
[2024-02-13] MEDS: MORPHINE SULFATE 2 MG/ML SYRINGE IV PRN (19:45)
[2024-02-13] MEDS: MIRTAZAPINE 15 MG TAB PO SCH (21:56)
[2024-02-14] MEDS: LORazepam 2 MG/ML INJ IV PRN (00:56)
[2024-02-14] MEDS: ATROPINE OPHTH SOLN 1% 5ML BTL SUBLINGUAL PRN (00:57)
[2024-02-14] MEDS ORDERED: ALPRAZolam 0.5 MG TAB PO PRN (08:17)
[2024-02-14 14:52] VITALS: BP 189/111; PULSE 100; TEMP 98.5
--- NOTE | 2024-02-14 15:01 | P.PN ---
Subjective Progress Note Date: 02/14/24 (delayed charting seen at 0830) Patient is a 73-year-old female with history of end-stage heart failure, COPD, and multiple comorbid conditions who presented to the emergency department and in respiratory distress. Patient and family elected to sign onto hospice care. She was started on oral Roxanol, Ativan, and medications for secretions. Patient seen and examined at bedside. Her eyes are closed but she denies any pain, shortness of breath, nausea. Vital signs reviewed General: Nontoxic, no distress, appears at stated age Cardiovascular: S1S2 reg, no murmur Lungs: CTA bilateral, no rhonchi, no rales, no accessory muscle use Ext: No gross muscle atrophy, plus edema bilateral lower extremities, no contractures Psych: Lethargic but awakes to tactile stimulus, appears withdrawn Assessment/Plan: Acute exacerbation of congestive heart failure, end-stage per family COPD on home O2 Bilateral pleural effusions Hypertensive emergency Possible DARREN Lactic acidosis Acute liver failure -Case discussed with hospice nurse practitioner, hospice nurse, and bedside nurse -Daughter is not able to accommodate the patient at home and therefore we are looking for alternative options such as [facility] hospice house versus [facility] home with hospice -Change Xanax to as needed -Ativan 1 mg IV every 6 hours as needed for anxiety, Roxanol 5 mg every 4 hours as needed for dyspnea or breakthrough pain with backup of morphine 2 mg IV every 15 minutes, continue with scopolamine patch, atropine drops and Robinul drops for secretions, discontinue Remeron Anticipate discharge to home patient hospice with arrangements have been made. If patient continues to worsen and requires IV Ativan or morphine for control of her discomfort could again reconsider continuing patient on [facility] hospice, but at this time appears appropriate for hospice in the outpatient setting This dictation was prepared using [employer] voice recognition software. Though every attempt is made to correct errors during dictation some may still exist. Objective - Vital Signs Vital signs: Vital Signs Temp 98.5 F 02/14/24 14:00 Pulse 100 02/14/24 14:00 Resp 22 02/14/24 14:00 BP 189/111 02/14/24 14:00 Pulse Ox 90 L 02/14/24 14:00 FiO2 Intake & Output 02/13/24 02/14/24 02/14/24 18:59 06:59 18:59 Output Total 125 Balance -125 Weight 49 kg 49 kg Output: Urine 125 Other: Voiding Method Indwelling Catheter Indwelling Catheter Indwelling Catheter
--- NOTE | 2024-02-15 11:16 | P.PN ---
Subjective Progress Note Date: 02/15/24 Patient is a 73-year-old female with history of end-stage heart failure, COPD, and multiple comorbid conditions who presented to the emergency department and in respiratory distress. Patient and family elected to sign onto hospice care. She was started on oral Roxanol, Ativan, and medications for secretions. Patient seen and examined at bedside.Eyes closed. Denies pain, c/o shortness of breath. Vital signs reviewed General: Nontoxic, no distress, appears at stated age Cardiovascular: S1S2 reg, no murmur Lungs: Course bs bilateral, no rhonchi, no rales, no accessory muscle use Ext: No gross muscle atrophy, plus edema bilateral lower extremities, no contractures Psych: Lethargic but awakes to tactile stimulus, appears withdrawn Assessment/Plan: Acute exacerbation of congestive heart failure, end-stage per family COPD on home O2 Bilateral pleural effusions Hypertensive emergency Possible DARREN Lactic acidosis Acute liver failure -Case discussed with bedside nurse, plan [facility]. -Change Xanax to as needed -Ativan 1 mg IV every 6 hours as needed for anxiety, Roxanol 5 mg every 4 hours as needed for dyspnea or breakthrough pain with backup of morphine 2 mg IV every 15 minutes, continue with scopolamine patch, atropine drops and Robinul drops for secretions, discontinue Remeron This dictation was prepared using [employer] voice recognition software. Though every attempt is made to correct errors during dictation some may still exist. Objective - Vital Signs Vital signs: Vital Signs Temp 98.5 F 02/14/24 14:00 Pulse 100 02/14/24 14:00 Resp 20 02/15/24 07:00 BP 189/111 02/14/24 14:00 Pulse Ox 97 02/15/24 07:46 FiO2 Intake & Output 02/14/24 02/15/24 02/15/24 18:59 06:59 18:59 Output Total 650 100 Balance -650 -100 Output: Urine 650 100 Other: Voiding Method Indwelling Catheter Indwelling Catheter
[2024-02-16 01:54] VITALS: RESP 21
--- NOTE | 2024-02-16 11:46 | P.DS ---
Providers Date of admission: 02/13/24 15:57 Expected date of discharge: 02/16/24 Attending physician: Familia Thorpe MD Primary care physician: Familia Thorpe MD Hospital Course: Discharge Diagnosis: Acute exacerbation of congestive heart failure, end-stage per family COPD on home O2 Bilateral pleural effusions Hypertensive emergency Possible DARREN Lactic acidosis Acute liver failure Hospital Course: Patient is a 73-year-old female with history of end-stage heart failure, COPD, and multiple comorbid conditions who presented to the emergency department and in respiratory distress. Patient and family elected to sign onto hospice care. She was started on oral Roxanol, Ativan, and medications for secretions. [facility] Patient seen and examined at bedside.Eyes closed. no pain or shortness of breath Vital signs reviewed General: Nontoxic, no distress, appears at stated age Cardiovascular: S1S2 reg, no murmur Lungs: Course bs bilateral, no rhonchi, no rales, no accessory muscle use Ext: No gross muscle atrophy, plus edema bilateral lower extremities, no contractures Psych: Lethargic but awakes to verbal stimuli, appears withdrawn A total of 25 minutes of time were spent preparing this complex discharge summary. Patient was discharged on 02/16/24. This dictation was prepared using [employer] voice recognition software. Though every attempt is made to correct errors during dictation some may still exist. Plan - Discharge Summary Discharge Rx Participant: Yes New Discharge Prescriptions: New Mirtazapine [Remeron] 15 mg PO HS tab Scopolamine 1 mg/72 Hr Patch [TransDerm Scop] 1 patch TRANSDERM Q72H patch Continue ALPRAZolam [Xanax] 0.5 mg PO BID Mirtazapine [Remeron] 15 mg PO HS Albuterol Sulfate [Albuterol Sulfate Hfa] 2 puff PO RT-Q6H PRN PRN Reason: Shortness Of Breath Discontinued Ergocalciferol [Vitamin D2 (DRISDOL)] 50,000 unit PO QMONTH Potassium Chloride ER [K-Dur 10] 10 meq PO BID Furosemide [Lasix] 20 mg PO BID Discharge Medication List ALPRAZolam [Xanax] 0.5 mg PO BID 02/13/24 [History] Albuterol Sulfate [Albuterol Sulfate Hfa] 2 puff PO RT-Q6H PRN 02/13/24 [History] Mirtazapine [Remeron] 15 mg PO HS 02/13/24 [History] Mirtazapine [Remeron] 15 mg PO HS tab 02/16/24 [Rx] Scopolamine 1 mg/72 Hr Patch [TransDerm Scop] 1 patch TRANSDERM Q72H patch 02/16/24 [Rx] Activity/Diet/Wound Care/Special Instructions: [facility] hospice home. Discharge Disposition: [facility]CH TO HOSPICE MED FACILTY
== END 2024-02-16 13:40 | disposition hospice, inpatient (51) | DRG 951 ==
LOC: EC 15:22 → 5NMEDONC 15:57 → 4SSUR 17:34
PROVIDERS: ADMIT Student in an Organized Health Care Education/Training Program; ATTEND Student in an Organized Health Care Education/Training Program
DX: Z51.5 Encounter for palliative care (principal); K72.00 Acute and subacute hepatic failure without coma; E87.20 Acidosis, unspecified; I16.1 Hypertensive emergency; I50.84 End stage heart failure; J44.9 Chronic obstructive pulmonary disease, unspecified; I48.91 Unspecified atrial fibrillation; Z66 Do not resuscitate; Z28.310 Unvaccinated for COVID-19; Z99.81 Dependence on supplemental oxygen; F41.9 Anxiety disorder, unspecified; E07.9 Disorder of thyroid, unspecified; Z91.199 Patient's noncompliance with other medical treatment and regimen due to unspecified reason; Z79.899 Other long term (current) drug therapy
CPT/HCPCS: 94760